=== PATIENT | male | born 2005 | race Caucasian/White ===

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

== ENCOUNTER 2023-08-31 14:34 | Emergency (ER) | payer OTHER, SELFPAY ==
--- NOTE | 2023-08-31 14:47 | ED_ITS ---
Discharge Plan Disposition Patient Disposition: Home, Self-Care Condition: Good Prescriptions Prescriptions: New oseltamivir [Tamiflu] 75 mg capsule 75 mg PO BID Qty: 10 0RF uksvfjivnjmqltl-pqwviljla-UA [Bromfed DM] 2-30-10 mg/5 mL Syrup 5 ml PO Q6H PRN (Reason: Cough) Qty: 240 0RF ondansetron 4 mg Tablet,Disintegrating 4 mg PO Q8H PRN (Reason: Nausea) Qty: 12 0RF Referrals Follow up/Referrals: Provider,Referral, MD [Primary Care Provider] - See instructions Activity Restrictions/Add. Instructions Additional Instructions/Restrictions: Drink plenty of fluids. Take tylenol or ibuprofen for pain or fever. Take the medications as directed. Follow up with your regular doctor. GO TO THE ER FOR ANY WORSENING SYMPTOMS Clinical Impressions Clinical Impression: Influenza B Instructions Patient Instructions: DI for Influenza -- Adult, Influenza, Oseltamivir Discharge ED Provider: Samuel Berry [facility] General Stated complaint: runny nose congestion headache Time Seen by Provider: 08/31/23 14:53 History of Present Illness Provider Complaint: He states that for the past 2 days he has had fever, chills, body aches, malaise, cough, and scratchy throat. Related Data Previous Rx's Medication Instructions Recorded gjqrkedzenrpjet-agtbibjymdjgyht-UL 5 ml PO Q6H PRN Cough #240 mL 08/31/23 2 mg-30 mg-10 mg/5 mL oral syrup (Bromfed DM) ondansetron 4 mg disintegrating 4 mg PO Q8H PRN Nausea #12 tabs 08/31/23 tablet oseltamivir 75 mg capsule (Tamiflu) 75 mg PO BID #10 caps 08/31/23 Allergies Allergy/AdvReac Type Severity Reaction Status Date / Time Penicillins [PENICILLINS] Allergy Unknown Verified 08/31/23 14:59 [facility] Disclaimer: The information contained in this section may have been updated after the patient was seen, as this information can be updated by other users. Medical History (Updated 08/31/23 @ 15:31 by Samuel Berry APRN) No significant past medical history Social History Smoking Status: Unknown if ever smoked alcohol intake: never current occupational status: student Travel in the last 8 weeks: None ROS Obtained: Yes All systems reviewed & no additional complaints except as documented Constitutional Constitutional: Reports chills and Reports fever(s) Eyes Eyes: Denies eye discharge ENT Ears, Nose, Mouth, and Throat: Reports as per HPI Cardiovascular Cardiovascular: Denies chest pain Respiratory Respiratory: Denies chest congestion and Reports cough Gastrointestinal Gastrointestingal: Reports nausea; Denies abdominal pain, constipation, crampin g, diarrhea or vomiting Musculoskeletal Musculoskeletal: Denies arthralgias Integumentary/Breasts Skin/Breast: Denies rash Neurologic Neurologic: Denies paresthesias Physical Exam General General appearance: alert and in no apparent distress Head Head exam: atraumatic, normocephalic and normal inspection Eye Eye exam: Present normal appearance, PERRL and EOMI ENT ENT exam: Present normal exam, normal oropharynx, mucous membranes moist, TM's normal bilaterally and normal external ear exam Neck Neck exam: Present normal inspection, full ROM and trachea midline; Absent meningismus or lymphadenopathy Chest Chest inspection: Present normal inspection and symmetric chest wall rise; Absent tenderness Respiratory Respiratory exam: Present normal lung sounds bilaterally; Absent respiratory distress Cardiovascular Cardiovascular exam: Present regular rate and normal rhythm; Absent JVD Abdominal Exam Abdominal exam: Present soft and normal bowel sounds; Absent distention, tenderness or guarding Extremities Exam Extremities exam: Present normal inspection, full ROM and normal capillary refill; Absent calf tenderness Back Exam Back exam: Present normal inspection; Absent tenderness Neurological Exam Neurological exam: Present alert and oriented X3 Psychiatric Psychiatric exam: Present normal affect and normal mood Skin Skin exam: Present warm, dry, intact and normal color Lymphatic Lymphatic Findings: no adenopathy Medical Decision Making Medical Records Medical records reviewed: No I reviewed the patient's medical records. Chavez Inquiry Pt receiving controlled substance: No Lab Data Lab results reviewed: Yes I reviewed the patient's lab results.
[2023-08-31 14:50] VITALS: BP 120/80; PULSE 77; RESP 18; TEMP 36.6; O2SAT 98; BMI 16.3
[2023-08-31 15:29] LABS: UTC Influenza A Antigen Negative (Negative); UTC Strep Screen (Rapid) Negative (Negative)
[2023-08-31 15:30] LABS: UTC Influenza B Antigen Positive (Negative)
[2023-08-31 15:38] VITALS: BP 120/80; PULSE 77; RESP 18; TEMP 36.6; O2SAT 98
== END 2023-08-31 15:38 | disposition home or self-care (01) ==
PROVIDERS: Emergency Provider Nurse Practitioner Family
DX: J10.1 Influenza due to other identified influenza virus with other respiratory manifestations (principal); R50.9 Fever, unspecified; R05.9 Cough, unspecified; R09.81 Nasal congestion; R07.0 Pain in throat; R11.0 Nausea; R53.81 Other malaise; M79.18 Myalgia, other site
CPT/HCPCS: 87804; 87880; 99212; 99214; G0463

== ENCOUNTER 2023-09-03 16:09 | Outpatient (CLI) | payer OTHER, SELFPAY ==
--- NOTE | 2023-09-03 16:14 | XR_ITS ---
PROCEDURE INFORMATION: Exam: XR Cervical Spine Exam date and time: 09/03/2023 4:33 PM Age: 17 years old Clinical indication: Pain; Cervicalgia; Additional info: Cervicalgia, numbness and tingling TECHNIQUE: Imaging protocol: Radiologic exam of the cervical spine. Views: 2 or 3 views. COMPARISON: MR CERVICAL SPINE WO CON 06/05/2022 8:24 AM FINDINGS: Bones/joints: Normal. No acute fracture. Normal alignment. Soft tissues: Unremarkable. IMPRESSION: No acute findings.
== END 2023-09-03 23:59 ==
LOC: RAD 16:10
PROVIDERS: Visit Provider Nurse Practitioner Family
DX: M54.2 Cervicalgia (principal); R20.0 Anesthesia of skin; R20.2 Paresthesia of skin
CPT/HCPCS: 72040

== ENCOUNTER 2024-02-02 14:17 | Outpatient (CLI) | payer OTHER, SELFPAY ==
[2024-02-02 14:50] VITALS: BP 110/57; PULSE 78; RESP 18; O2SAT 96
[2024-02-02 14:50] LABS: Adenovirus,PCR Not Detected (NotDetected); Bordetella Pertussis Not Detected (NotDetected); Chlamydophila Pneumoniae, PCR Not Detected (NotDetected); Coronavirus 19, PCR Not Detected (NotDetected); Coronavirus 229E Not Detected (NotDetected); Coronavirus NL63 Not Detected (NotDetected); Coronavirus OC43 Not Detected (NotDetected); Coronovirus HKU1,PCR Not Detected (NotDetected); Human Metapneumovirus Not Detected (NotDetected); Influenza A, PCR Not Detected (NotDetected); Influenza AH1, 2009 Not Detected (NotDetected); Influenza AH1, PCR Not Detected (NotDetected); Influenza AH3,PCR Not Detected (NotDetected); Influenza B, PCR Not Detected (NotDetected); Mycoplasma Pneumoniae, PCR Not Detected (NotDetected); Parainfluenza 1, PCR Not Detected (NotDetected); Parainfluenza 2, PCR Not Detected (NotDetected); Parainfluenza 3, PCR Not Detected (NotDetected); Parainfluenza 4, PCR Not Detected (NotDetected); Respiratory Syncytial Virus Not Detected (NotDetected)
[2024-02-02] MEDS: 0.9 % SODIUM CHLORIDE 1000ML 1,000 ML 999 ML IV (14:50)
[2024-02-02 15:00] LABS: Adenovirus F 40/41, stool Not Detected (NotDetected); Astrovirus Not Detected (NotDetected); Campylobacter Not Detected (NotDetected); Clostridium Difficile A/B, PCR Not Detected (NotDetected); Cryptosporidium Not Detected (NotDetected); Cyclospora Cayetanesis Not Detected (NotDetected); Entamoeba histolytica Not Detected (NotDetected); Enteroaggregative E coli Not Detected (NotDetected); Enterotoxigenic E coli Not Detected (NotDetected); Giardia lamblia Not Detected (NotDetected); Plesimonas Shigalloides, PCR Not Detected (NotDetected); Rotavirus A Not Detected (NotDetected); Salmonella, PCR Not Detected (NotDetected); Sapovirus Not Detected (NotDetected); Shiga-like toxin E coli Not Detected (NotDetected); Shigella Enterovasive E coli Not Detected (NotDetected); Vibrio Cholerae Not Detected (NotDetected); Vibrio, PCR Not Detected (NotDetected); Yersinia Entercolitica, PCR Not Detected (NotDetected)
[2024-02-02 16:15] VITALS: BP 108/59; PULSE 75; RESP 18; O2SAT 96
[2024-02-02 16:26] LABS: Rhinovirus/Enterovirus Detected (NotDetected)
[2024-02-02 17:56] LABS: Enteropathogenic E coli Detected (NotDetected); Norovirus Detected (NotDetected)
== END 2024-02-02 16:15 | disposition home or self-care (01) ==
LOC: INF 14:20
PROVIDERS: PCP Nurse Practitioner Family; Visit Provider Nurse Practitioner Family
DX: E86.0 Dehydration (principal); R11.2 Nausea with vomiting, unspecified; R19.7 Diarrhea, unspecified; R50.9 Fever, unspecified; A04.0 Enteropathogenic Escherichia coli infection; A08.19 Acute gastroenteropathy due to other small round viruses; B97.10 Unspecified enterovirus as the cause of diseases classified elsewhere
CPT/HCPCS: 87507; 87581; 87632; 87635; 87798; 96360

== ENCOUNTER 2025-02-03 18:00 | Emergency (ER) | payer OTHER, SELFPAY ==
[2025-02-03] VITALS (8 sets, daily range): BP systolic 119–144; BP diastolic 78–95; PULSE 76–112; RESP 16–20; TEMP 36.7; O2SAT 99–100; BMI 17.2
--- NOTE | 2025-02-03 18:17 | XR_ITS ---
PROCEDURE INFORMATION: Exam: XR Right Hand Exam date and time: 02/03/2025 6:29 PM Age: 19 years old Clinical indication: Injury or trauma; Other: Punched a tree; Other: Pain; Additional info: Punched a tree, tree won TECHNIQUE: Imaging protocol: Radiologic exam of the right hand. Views: 3 or more views. COMPARISON: CR (HAND PA, HAND, HAND PA) 12/07/2018 10:01 AM FINDINGS: Bones/joints: Fourth metacarpal head neck fracture with apex dorsal angulation. Abnormal articulation of the 4th and 5th metacarpal bases may represent subluxation. Moderately comminuted fracture of the hamate. Soft tissues: Moderate soft tissue swelling at the fracture sites. IMPRESSION: 1. Fourth metacarpal head neck fracture with apex dorsal angulation. Abnormal articulation of the 4th and 5th metacarpal bases may represent subluxation. 2. Moderately comminuted fracture of the hamate.
--- NOTE | 2025-02-03 18:17 | XR_ITS ---
PROCEDURE INFORMATION: Exam: XR Right Wrist Exam date and time: 02/03/2025 6:29 PM Age: 19 years old Clinical indication: Injury or trauma; Other: Punched a tree; Other: Pain TECHNIQUE: Imaging protocol: Radiologic exam of the right wrist. Views: 3 or more views. COMPARISON: CR (HAND PA, HAND, HAND PA) 12/07/2018 10:01 AM FINDINGS: Bones/joints: Fourth metacarpal head neck fracture with apex dorsal angulation. Abnormal articulation of the 4th and 5th metacarpal bases may represent subluxation. Soft tissues: Normal. IMPRESSION: 1. Fourth metacarpal head neck fracture with apex dorsal angulation. 2. Abnormal articulation of the 4th and 5th metacarpal bases may represent subluxation.
--- NOTE | 2025-02-03 18:19 | HMH.EDGENADL ---
Discharge Plan Disposition Patient Disposition: Home, Self-Care Prescriptions Prescriptions: New ibuprofen 800 mg tablet 800 mg PO Q8H PRN (Reason: pain) Qty: 12 0RF hydrocodone-acetaminophen 5-300 mg tablet 1 tab PO Q8H PRN (Reason: pain (scale score 7-10)) Qty: 9 0RF Rx Instructions: Only take after ibuprofen 806 150 mg of Tylenol are ineffective for severe pain No Action ondansetron HCl 4 mg tablet 4 mg PO Q8H PRN (Reason: nausea and vomiting) Qty: 30 0RF Referrals Follow up/Referrals: Ana Zuniga APRN [Primary Care Provider, Medical] - See instructions Christian Cavazos DO [Staff Physician, Orthopedics] - See instructions Activity Restrictions/Add. Instructions Additional Instructions/Restrictions: At this time it was felt you are safe to be discharged home. If new or worsening symptoms please do not hesitate to return the emergency department. Please call and schedule appoint with Dr. Cavazos as soon as you are able. Please take your medication as prescribed. Clinical Impressions Clinical Impression: Fracture of metacarpal, Fracture of hamate Print Language Print Language: Bengali Discharge ED Provider: Omar Batres General Adult HPI General Chief complaint: Extremity Injury, Upper Stated complaint: [id number] injury right hand Time Seen by Provider: 02/03/25 18:05 Mode of Arrival: Ambulatory Source of Information: Patient Description of Symptoms (Recalled from ER Triage Doc. by RN): pt presents to the ED after punching a tree with his right hand 30 minutes ago. pt states he got mad and punched a tree. PMS present. History of Present Illness HPI narrative: Patient is a 19-year-old right handed male who presents emergency department for evaluation of punching a tree. He punched it approximately 30 minutes prior to arrival and had immediate pain over his dorsal lateral wrist and MCP joints. No elbow pain no proximal forearm pain no other acute complaints at this time no other trauma. Please note that above description of symptoms, in this electronic medical record under categorization of recalled from ER triage doctor by RN are reflective of an initial nursing assessment, however, is not reflective of my full history and physical exam that was personally taken and clarified. Consequentially, this preceding description of symptoms, which may include the patient's categorized chief complaint in the EMR, do not reflect my personal clinical impression, and the ultimate description of history of present illness and patient stated complaints should be deferred to this section of the note. Unless stated otherwise or congruent with this section of the note, additional signs, symptoms, or incongruence should be interpreted as inaccurate with my clinical impression. Related Data Previous Rx's ?Medication ?Instructions ?Recorded ondansetron HCl 4 mg tablet 4 mg PO Q8H PRN nausea and 02/02/24 vomiting #30 tabs hydrocodone 5 mg-acetaminophen 300 1 tab PO Q8H PRN pain (scale score 02/03/25 mg tablet 7-10) #9 tabs ibuprofen 800 mg tablet 800 mg PO Q8H PRN pain #12 tabs 02/03/25 Allergies Allergy/AdvReac Type Severity Reaction Status Date / Time Penicillins (PENICILLINS) Allergy Unknown Verified 02/02/24 13:06 [facility] Disclaimer: The information contained in this section may have been updated after the patient was seen, as this information can be updated by other users. Medical History No significant past medical history Social History Smoking Status: Current every day smoker tobacco type: cigarettes years smoked: 2 alcohol intake: never substance use type: denies use current occupational status: unemployed Travel in the last 8 weeks?: None Have you lived/traveled outside US in past 30 days?: No Contact w/someone who lives/traveled outside US past 30 days?: No Exposure to someone with infectious disease in past 14 days?: No Do you have a fever (greater than 100.4 F or 38 C)?: No Have you tested positive for COVID-19?: No Exposed to someone with COVID-19 in past 14 days?: No Do you have a sore throat?: No Do you have a cough?: No Do you have any weakness?: No Do you have any diarrhea?: No Are you experiencing any unusual bleeding?: No Do you have any muscle aches/pain?: No Do you have any abdominal pain?: No Are you experiencing loss of taste or smell?: No ROS Obtained: Yes Systems reviewed as appropriate & no additional complaints except as documented Physical Exam General General appearance: alert Comment: Appearing uncomfortable in bed Head Head exam: atraumatic and normocephalic Eye Eye exam: Present PERRL and EOMI ENT ENT exam: Present mucous membranes moist Neck Neck exam: Present normal inspection Chest Chest inspection: Present normal inspection and symmetric chest wall rise Respiratory Respiratory exam: Absent respiratory distress Cardiovascular Cardiovascular exam: Present regular rate and normal rhythm Extremities Exam Extremities exam: Present other (Bumpy deformity over the ulnar aspect of the metacarpals, distally neurovascularly intact all digits of the right hand. No tenderness over the digits of the right hand or distal forearm on the right. Palpable radial pulse on the right.) Neurological Exam Neurological exam: Present alert Psychiatric Psychiatric exam: Present normal affect Skin Skin exam: Present warm and dry Medical Decision Making Medical Records Screening: Per USPSTF and CDC recommendations, given the prevalence of disease in our region, it is our hospital?s policy to screen for HIV and viral Hepatitis for all patients aged 18 and over and those with ongoing risk factors. Chavez Inquiry Pt receiving controlled substance: No Vital Signs: 02/03/25 18:07 02/03/25 18:10 02/03/25 18:13 Temperature 98.1 F 98.1 F Temperature Source Oral Oral Pulse Rate 90 88 Pulse Rate [Right] 88 Respiratory Rate 16 16 Blood Pressure 144/95 H 144/95 H Blood Pressure [Right Arm] 144/95 H Blood Pressure Mean [Right Arm] 111 Blood Pressure Source Automatic Cuff Blood Pressure Source [Right Arm] Automatic Cuff Blood Pressure Position Supine Blood Pressure Position [Right Arm] Supine 02 Sat by Pulse Oximetry 99 100 100 Oxygen Delivery Method Room Air Room Air Room Air 02/03/25 18:30 Temperature Temperature Source Pulse Rate 93 H Pulse Rate [Right] Respiratory Rate Blood Pressure 120/78 Blood Pressure [Right Arm] Blood Pressure Mean [Right Arm] Blood Pressure Source Blood Pressure Source [Right Arm] Blood Pressure Position Blood Pressure Position [Right Arm] 02 Sat by Pulse Oximetry 99 Oxygen Delivery Method Room Air Orders (Tests/Meds): ED MEDICATIONS Discontinued Medications Generic Name Dose Route Start Last Admin Trade Name Freq PRN Reason Stop Dose Admin Acetaminophen 650 mg 02/03/25 18:17 02/03/25 18:25 Acetaminophen 325mg Tab PO 02/03/25 18:18 650 mg ONCE ONE Administration Ibuprofen 600 mg 02/03/25 18:17 02/03/25 18:24 Ibuprofen 600 Mg Tablet PO 02/03/25 18:18 600 mg ONCE ONE Administration Oxycodone HCl 5 mg 02/03/25 18:53 02/03/25 18:58 Oxycodone 5mg Immediate Release Tablet PO 02/03/25 18:54 5 mg ONCE ONE Administration ORDERS Category Date Time Status Hand XR right minimum 3 views [XR hand RT min 3V] Stat Exams 02/03/25 18:17 Completed Hand XR right minimum 3 views [XR hand RT min 3V] Stat Exams 02/03/25 19:45 Ordered Wrist XR right minimum 3 views [XR wrist RT min 3V] Exams 02/03/25 18:17 Completed Stat HIV Combo Stat Lab 02/03/25 18:13 Ordered Hepatitis C Ab Qual. W/ RFX Stat Lab 02/03/25 18:13 Ordered Medical Decision Narrative: In summary patient is 19-year-old male past medical history Casey above presents emergency department for evaluation of trauma punching a tree. Patient is hemodynamically stable upon arrival has a bumpy deformity of his right hand which I suspect he has a metacarpal fracture. Differential diagnosis also includes metacarpal dislocation musculoskeletal swelling, among others. Workup we conducted with plain from the right hand and wrist. Initial inventions include Tylenol and ibuprofen. Initial x-ray informally visualized by me, acute fourth metacarpal fracture. Formal read abnormal articulation of the base of the 4th and 5th metatarsals may represent subluxation there is also a hamate fracture. I discussed the case with Dr. Cavazos regarding management on the lateral there is not appear to be subluxation of the base of the 4th and 5th metacarpals and the force is likely transmitted through the hamate. Given this patient was reduced after digital block. Informal visualization of the lateral x-ray shows improved angulation. Given this patient was placed in a ulnar gutter splint and will follow-up with Dr. Cavazos on an outpatient basis and was given return precautions. Procedure: Procedure performed was fracture duction. Procedure facilitated by metacarpal block conducted with lidocaine without epinephrine approximately 7 cc was infected into the intercarpal metacarpal space between the 3rd and 4th and 4th and 5th digits. Partial anesthesia achieved. Dorsal force was applied to the distal fracture fragment and was placed in an ulnar gutter splint. Patient tolerated the procedure well. Distally neurovascular intact postreduction. There were no immediate complications. Cotton Roll Packer disclaimer Much of this encounter note is an electronic critical care physician assistant spoken language to printed text. Electronic critical care physician assistant of the spoken language may permit errors. Although I have reviewed the note, some errors may still exist. Critical Care Critical Care Time Critical Care Time: No
[2025-02-03] MEDS: IBUPROFEN 600 MG TABLET PO (18:24)
[2025-02-03] MEDS: ACETAMINOPHEN 325MG TAB 650 MG PO (18:25)
[2025-02-03] MEDS: OXYCODONE 5MG IMMEDIATE RELEASE TABLET 5 MG PO (18:58)
--- NOTE | 2025-02-03 19:45 | XR_ITS ---
PROCEDURE INFORMATION: Exam: XR Right Hand Exam date and time: 02/03/2025 7:51 PM Age: 19 years old Clinical indication: Injury or trauma; Other: Punched a tree; Other: Pain; Additional info: Repeat reduct TECHNIQUE: Imaging protocol: Radiologic exam of the right hand. Views: 1 or 2 views. COMPARISON: CR XR HAND RT MIN 3V 02/03/2025 6:29 PM FINDINGS: Tubes, catheters and devices: Posterior splint immobilization of previously described 4th metacarpal and hamate fractures. Bones/joints: See above. Soft tissues: Moderate soft tissue swelling at the fracture sites. IMPRESSION: Posterior splint immobilization of previously described 4th metacarpal and hamate fractures.
--- NOTE | 2025-02-03 19:50 | PC.NURSE ---
ED provider at the bedside for digital block and reduction
== END 2025-02-03 20:03 | disposition home or self-care (01) ==
PROVIDERS: Emergency Provider Emergency Medicine; PCP Nurse Practitioner Family
DX: S62.334A Displaced fracture of neck of fourth metacarpal bone, right hand, initial encounter for closed fracture (principal); S62.141A Displaced fracture of body of hamate [unciform] bone, right wrist, initial encounter for closed fracture; W22.8XXA Striking against or struck by other objects, initial encounter
CPT/HCPCS: 29125; 73110; 73120; 73130; 99284

== ENCOUNTER 2025-02-10 14:32 | Outpatient (CLI) | payer OTHER, SELFPAY ==
--- OUTSIDE RECORDS SUMMARY | 2025-02-10 14:41 | XMS_ITS | Encounter Summary ---
Author Organization [address] [employer] Address [address] [place] [id number] Care Team Providers Care Supervisor In Charge Name Role Phone Unavailable Primary Care Provider Unavailabl e Encounter Details Date Type Department Care Team (Late st Contact Info) Description 01/17/2021 Transcribed Document [facility] [place] Family Medicine [address] [place] [address] ProviderZackery MD [address] [place] [address] Social History Tobacco Use Types Packs/Day Years Used Date Smoking Tobacco: Never Assessed Sex and Gender Information Value Date Recorded Sex Assigned at Male 02/12/2022 8:52 PM CDT Legal Sex Male 8:52 PM CDT Gender Identity Male 02/12/2022 8:52 PM CDT Sexual Orientation Not on file documented as of this encounter Miscellaneous Notes * Cerner Conversion Note - Zackery ProviderMD - 01/17/2021 8:43 PM CDT ED Assessment Entered On: 01/17/2021 21:33 EDT Performed On: 01/17/2021 21:33 EDT by CARROLL HENAO Rn ED Quick Look Assessment Level of Consciousness : Alert, Awake Affect/Behavior : Appropriate, Calm, Cooperative Orientation : Oriented x 4 Skin Temperature : Warm Skin Description : Dry CARROLL HENAO Rn - 01/17/2021 21:33 EDT ED General-Functional Assess Communication Barrier : None Primary Language : Montserratian Any Spiritual/Cultural Needs or Requests : No Currently in Unsafe Situation : No CARROLL HENAO Rn - 01/17/2021 21:33 EDT Social Habits Smoking Status : 5-9 cigarettes (between 1/4 to 1/2 pack)/day in last 30 days Smokeless Tobacco Status : Never Desires Tobacco Cessation Medication : No Reason for No Tobacco Cessation Medication : ED/procedural patient only Desires Tobacco Cessation Calc : 1 CARROLL HENAO, Rn - 01/17/2021 21:33 EDT Social History (As Of: 01/17/2021 21:33:50 EDT) Tobacco: 5-9 cigarettes (between 1/4 to 1/2 pack)/day in last 30 days Smoking Status. (Last Updated: 01/17/2021 20:49:47 EDT by CARROLL HENAO, Rn) Alcohol: Alcohol Use History No. (Last Updated: 01/17/2021 20:49:47 EDT by CARROLL HENAO, Rn) Substance Abuse: Drug Use Hx: No. Use in Last 12 Months: No. (Last Updated: 01/17/2021 20:49:47 EDT by CARROLL HENAO, Rn) documented in this encounter Plan of Treatment Not on file documented as of this encounter Visit Diagnoses Not on filedocumented in this encounter
--- OUTSIDE RECORDS SUMMARY | 2025-02-10 14:41 | XMS_ITS | Referral Summary ---
Author Organization [employer] Address [address] [place] [id number] Care Team Providers Care Ostrich Farmer Name Role Phone Unavailable Primary Care Provider Unavailabl e Social History Tobacco Use Types Packs/Day Years Used Date Smoking Tobacco: Never Assessed Sex and Gender Information Value Date Recorded Sex Assigned at Male 02/12/2022 8:52 PM CDT Legal Sex Male 8:52 PM CDT Gender Identity Male 02/12/2022 8:52 PM CDT Sexual Orientation Not on file Plan of Treatment Not on file
--- OUTSIDE RECORDS SUMMARY | 2025-02-10 14:41 | XMS_ITS | Encounter Summary ---
Author Organization [employer] Address [address] [place] [address] Care Team Providers Care Correction Officer Reformatory Name Role Phone Unavailable Primary Care Provider Unavailabl e Encounter Details Date Type Department Care Team (Late st Contact Info) Description 01/17/2021 Transcribed Document [facility] [place] Family Medicine [address] [place] [address] ProviderZackery MD [address] [place], [place] [id number] Social History Tobacco Use Types Packs/Day Years Used Date Smoking Tobacco: Never Assessed Sex and Gender Information Value Date Recorded Sex Assigned at Male 02/12/2022 8:52 PM CDT Legal Sex Male 8:52 PM CDT Gender Identity Male 02/12/2022 8:52 PM CDT Sexual Orientation Not on file documented as of this encounter Miscellaneous Notes * Cerner Conversion Note - Historical ProviderMD - 01/17/2021 8:43 PM CDT Broset Violence Assessment Entered On: 01/17/2021 21:33 EDT Performed On: 01/17/2021 21:33 EDT by CARROLL HENAO Rn Broset Violence Assessment Broset Violence Checklist of Symptoms : None Broset Violence Symptoms Subtotal : 0 Broset Violence Symptoms Indicator : Low risk (0) CARROLL HENAO Rn - 01/17/2021 21:33 EDT documented in this encounter Plan of Treatment Not on file documented as of this encounter Visit Diagnoses Not on filedocumented in this encounter
--- OUTSIDE RECORDS SUMMARY | 2025-02-10 14:41 | XMS_ITS | Clinical Summary ---
Author Organization Healthcare Address [address] [id number] Care Team Providers Care Salvationist Name Role Phone Good Romo MD Primary Care Provider [phone] Allergies Active Allergy Reactions Criticality Noted Date Comments Penicillins Unknown - Patient st ates they do not know rxn details Low 01/25/2021 Medications ibuprofen 800 MG tablet Take 800 mg by mouth every 6 (six) hours if needed for mild pain. Active sulfamethoxazole -trimethoprim (Bactrim DS) 800-160 MG tablet Take 1 tablet by mouth 2 (two) times a day. Active Active Problems Problem Noted Date Diagnosed Date Postoperative scar 02/27/2021 Median nerve laceration, right, subsequent encou nter 02/07/2021 Assessment & Plan (02/07/2021 2:51 PM EDT): Relevant Hx: s/p primary repair of median nerve and palmar cutaneous branch 01/26/21 Course: Decreased two-point discrimination in median nerve distribution as expected. Today's Plan: Discussed with patient this will continue to evolve over time and we will continue to follow. Flexor tendon laceration of right wrist with ope n wound 02/07/2021 Assessment & Plan (02/07/2021 2:53 PM EDT): Relevant Hx: Laceration of FCR, FDS to middle, ring, and small fingers 01/26/21 Course: Began modified granados protocol, no evidence of repaired tendon rupture. Today's Plan: Continue PT/OT (patient with appointment today), Continue splint (patient will need new splint made at Hand therapy appointment today), Follow-up with Dr. Clemencia Doyle 1 month S/P tendon repair 02/05/2021 Pain in wrist, right 02/01/2021 Stiffness of right wrist joint 01/30/2021 Finger joint stiff, right 01/30/2021 Edema of hand 01/30/2021 Weakness of right hand 01/30/2021 Pain in finger of right hand 01/17/2021 Family History Medical History Relation Name Comments Cancer Paternal Grandmother Relation Name Status Comments Paternal Grandmother Social History Tobacco Use Types Packs/Day Years Used Date Smoking Tobacco: Every Day Cigarettes 0.3 1 Smokeless Tobacco: Never Alcohol Use Standard Drinks/Week Comments Never 0 (1 standard drink = 0.6 oz pur e alcohol) Sex and Gender Information Value Date Recorded Sex Assigned at Not on file Legal Sex Male 3:56 PM EDT Gender Identity Not on file Sexual Orientation Not on file Last Filed Vital Signs Vital Sign Reading Time Taken Comments Blood Pressure 112/71 04/18/2021 12:51 PM EDT Pulse 75 04/18/2021 12:51 PM EDT Temperature 36.9 C (98.4 F) 04/18/2021 12:51 PM EDT Respiratory Rate 12 01/26/2021 7:15 PM EDT Oxygen Saturation 100% 04/18/2021 12:51 PM EDT Inhaled Oxygen Concentration - - Weight 51.7 kg (114 lb) 04/18/2021 12:51 PM EDT Height 177.8 cm (5' 10 ) 04/18/2021 12:51 PM EDT Body Mass Index 16.36 04/18/2021 12:51 PM EDT Plan of Treatment Health Maintenance Due Date Last Done Comments [facility]-Depression Screening 2003 [facility]-/Child/Adol SDOH Screenings 2003 [facility]-Varicella Vaccines (1 of 2 - 13+ 2-dose series) 12/23/2016 HPV Vaccines (1 - Male 3-dos e series) 12/23/2018 [facility]- SDOH Screenings 12/23/2021 [facility]-Adult SDOH Screenings 12/23/2021 [facility]-DTaP,Tdap,and Td Vaccine s (1 - Tdap) 12/23/2022 [facility]-Hepatitis B Vaccines (1 of 3 - 19+ 3-dose series) 12/23/2022 [facility]-MLNZF-30 Vaccine (1 - 20 24-25 season) 2024 [facility]-Influenza Vaccine (Seas[place] n Ended) 2025 [facility]-Zoster Vaccines (1 of 2) 12/23/2053 [facility]-HIB Vaccines Aged Out No longer e ligible based on patient's age to complete this topic [facility]-Hepatitis A Vaccines Aged Out No longer eligible based on patient's age to complete this topic [facility]-IPV Vaccines Aged Out No longer e ligible based on patient's age to complete this topic [facility]-Pneumococcal Vaccine: Pediatrics (0 to 5 Years) and At-Risk Patients (6 to 49 Years) Aged Out No long er eligible based on patient's age to complete this topic [facility]-Rotavirus Vaccines Aged Out No lo nger eligible based on patient's age to complete this topic Goals Goal Patient Goal Type Associated Problems Recent Progress Patient-Stated? Author OT Goal move my hand the way I did Occupational Therapy On track(2020 2:35 PM EDT) Yes Ana Lilia Patel OT Goal - reduce edema in R wrist by 1 cm by 03/26/21 Occupational Therapy Improving( 1:46 PM EDT) No Ana Lilia Patel Note: Continue with goal Decreased edema by 0.6 cm on 02/27/21 LTG OT Impaired Function: Patient will decrease QUICK DASH score to < 15% Occupational Therapy Improving( 10:58 AM EDT) No Ana Lilia Patel Pt will regain buzzle buffer strength of affected hand to within normal range for sex and age in order to return to activity at prior level of function Occupational Therapy Improving( 10:58 AM EDT) No Ana Lilia Patel STG 4: Pt will increase wrist AROM in extension, radial and ulnar deviation to 60, 20 and 25 respectively by 03/26/21 Occupational Therapy Improving( 10:58 AM EDT) No Ana Lilia Patel STG OT ROM: Patient will demonstrate ability to passively extend IP to neutral without resistance of scar Occupational Therapy Improving( 10:58 AM EDT) No Ana Lilia Patel STG OT: Patient will demonstrate 10 lbs increase in right hand buzzle buffer strength. Occupational Therapy No Ana Lilia Patel Insurance [employer] MEDICAID [employer] Care Teams Salvationist Relationship Specialty Start Date End Date Good Romo MD [address] [place] [address] #1 [address]1 [place] [id number] PCP - General 01/26/21
--- OUTSIDE RECORDS SUMMARY | 2025-02-10 14:41 | XMS_ITS | Encounter Summary ---
Author Organization [employer] Address [address] [place] [address] Care Team Providers Care Plumber Supervisor Name Role Phone Unavailable Primary Care Provider Unavailabl e Encounter Details Date Type Department Care Team (Late st Contact Info) Description 01/17/2021 Transcribed Document [facility] [place] [address] [place] [address] ProviderZackery MD [address] [place] [address] Social History Tobacco Use Types Packs/Day Years Used Date Smoking Tobacco: Never Assessed Sex and Gender Information Value Date Recorded Sex Assigned at Male 02/12/2022 8:52 PM CDT Legal Sex Male 8:52 PM CDT Gender Identity Male 02/12/2022 8:52 PM CDT Sexual Orientation Not on file documented as of this encounter Miscellaneous Notes * Cerner Conversion Note - Zackery López MD - 01/17/2021 10:58 PM CDT [facility] [place], [place] [id number] VLADIMIR WALL :2005 Visit Time:01/17/2021 Your Visit Summary Your Care Team Primary Provider: NIDA BOLTON PA-C Secondary Provider: Your Diagnosis Arm laceration Laceration of wrist, right, complicated Medical Information You may obtain a copy of your Emergency Department visit from Medical Records by calling the hospital phone number listed above and asking to be directed to the Medical Records Department. If you had special tests, such as EKG???s or X-rays, the interpretation of your tests given to you by the Emergency Department Physician is a preliminary report. Some fractures and illnesses fail to show up on preliminary tests. These will be reviewed again and we will call you if there are any new suggestions. If your symptoms continue notify your physician. After you leave, you should follow the instructions provided. What to do next Follow-Up Appointments Follow Up with HANNAH MATHEW When Within 2 to 3 days Comments Orthopedics Call tomorrow morning for appointment for tomorrow or frederick Keep wound clean and dry Return to ER with any redness swelling or other complications Motrin and Tylenol Where: [address] [address]- Business (1) Follow Up with SUE [facility] When Within 2 to 3 days Where: [address] [place] [id number] Business (1) Allergies penicillin Immunizations This Visit No Immunizations Found Medications What How Much When Instructions Next Dose ibuprofen (ibuprofen 800 mg oral tablet) 1 Tablet(s) Oral Every 8 Hours Duration: 10 Day(s) Pickup at [facility] sulfamethoxazole-trimethoprim (Bactrim DS 800 mg-160 mg oral tablet) 1 Tablet(s) Oral Two Times A Day Duration: 10 Day(s) Pickup at [facility] Pharmacy Information [facility]: [address] [place] [address] [address] [place], [place] [phone] The home medications listed are only as accurate as the information you provided. Please continue taking all of your medications prescribed by your Primary Care Provider unless specifically told to change or discontinue the medication. Please direct any questions regarding your home medications to your Primary Care Provider. Take your medications faithfully. Do NOT skip medication. Do NOT stop taking medications without the direction of a physician. Carry a list of your medications with you at all times, and take this medication list with you to your first follow up visit. Report any side effects. Avoid herbal remedies unless discussed with your physician. As part of your treatment plan, your physician may have prescribed a limited course of a controlled substance. This medication may be given to help people with moderate or severe pain or for other medical conditions, but there are risks involved with treatment. Common side effects may include nausea, constipation, drowsiness, sweating, itching, dry mouth, and rash. More serious side effects may include cognitive and motor impairment, like problems with thinking, concentrating, alertness, and movement (e.g. slowed reflexes), and driving and operating heavy machinery can be dangerous. It is important for you to talk to your physician if you have these side effects or questions. These controlled substances can produce physical dependence and be habit-forming if taken for an extended period of time, which means that the body has gotten used to them and may experience withdrawal symptoms if they are abruptly stopped. Withdrawal symptoms can include runny nose, sweating, goose bumps, diarrhea, abdominal cramping, rapid heartbeat, difficulty sleeping, and nervousness. Please dispose of unused and medications per pharmacy guidance. Test Results Laboratory or Other Results This Visit (last charted value for your 01/17/2021 visit) No Laboratory or Other Results This Visit Education Materials Wound Care, Adult Taking care of your wound properly can help to prevent pain, infection, and scarring. It can also help your wound to heal more quickly. How to care for your wound Wound care ??? Follow instructions from your health care provider about how to take care of your wound. Make sure you: ? Wash your hands with soap and water before you change the bandage (dressing). If soap and water are not available, use hand fork repairer. ? Change your dressing as told by your health care provider. ? Leave stitches (sutures), skin glue, or adhesive strips in place. These skin closures may need to stay in place for 2 weeks or longer. If adhesive strip edges start to loosen and curl up, you may trim the loose edges. Do not remove adhesive strips completely unless your health care provider tells you to do that. ??? Check your wound area every day for signs of infection. Check for: ? Redness, swelling, or pain. ? Fluid or blood. ? Warmth. ? Pus or a bad smell. ??? Ask your health care provider if you should clean the wound with mild soap and water. Doing this may include: ? Using a clean towel to pat the wound dry after cleaning it. Do not rub or scrub the wound. ? Applying a cream or ointment. Do this only as told by your health care provider. ? Covering the incision with a clean dressing. ??? Ask your health care provider when you can leave the wound uncovered. ??? Keep the dressing dry until your health care provider says it can be removed. Do not take baths, swim, use a hot tub, or do anything that would put the wound underwater until your health care provider approves. Ask your health care provider if you can take showers. You may only be allowed to take sponge baths. Medicines ??? If you were prescribed an antibiotic medicine, cream, or ointment, take or use the antibiotic as told by your health care provider. Do not stop taking or using the antibiotic even if your condition improves. ??? Take cdry-yuz-qwboqlo and prescription medicines only as told by your health care provider. If you were prescribed pain medicine, take it 30 or more minutes before you do any wound care or as told by your health care provider. General instructions ??? Return to your normal activities as told by your health care provider. Ask your health care provider what activities are safe. ??? Do not scratch or pick at the wound. ??? Do not use any products that contain nicotine or tobacco, such as cigarettes and e-cigarettes. These may delay wound healing. If you need help quitting, ask your health care provider. ??? Keep all follow-up visits as told by your health care provider. This is important. ??? Eat a diet that includes protein, vitamin A, vitamin C, and other nutrient-rich foods to help the wound heal. ? Foods rich in protein include meat, dairy, beans, nuts, and other sources. ? Foods rich in vitamin A include carrots and dark green, leafy vegetables. ? Foods rich in vitamin C include citrus, tomatoes, and other fruits and vegetables. ? Nutrient-rich foods have protein, carbohydrates, fat, vitamins, or minerals. Eat a variety of healthy foods including vegetables, fruits, and whole grains. Contact a health care provider if: ??? You received a tetanus shot and you have swelling, severe pain, redness, or bleeding at the injection site. ??? Your pain is not controlled with medicine. ??? You have redness, swelling, or pain around the wound. ??? You have fluid or blood coming from the wound. ??? Your wound feels warm to the touch. ??? You have pus or a bad smell coming from the wound. ??? You have a fever or chills. ??? You are nauseous or you vomit. ??? You are dizzy. Get help right away if: ??? You have a red streak going away from your wound. ??? The edges of the wound open up and separate. ??? Your wound is bleeding, and the bleeding does not stop with gentle pressure. ??? You have a rash. ??? You faint. ??? You have trouble breathing. Summary ??? Always wash your hands with soap and water before changing your bandage (dressing). ??? To help with healing, eat foods that are rich in protein, vitamin A, vitamin C, and other nutrients. ??? Check your wound every day for signs of infection. Contact your health care provider if you suspect that your wound is infected. This information is not intended to replace advice given to you by your health care provider. Make sure you discuss any questions you have with your health care provider. Document Revised: 11/22/2019 Document Reviewed: 02/18/2017 [employer] Patient Education ?? 2020 [employer] Laceration Care, Adult A laceration is a cut that may go through all layers of the skin and into the tissue that is right under the skin. Some lacerations heal on their own. Others need to be closed with stitches (sutures), luis, skin adhesive strips, or skin glue. Proper care of a laceration reduces the risk for infection, helps the laceration heal better, and may prevent scarring. How to care for your laceration Wash your hands with soap and water before touching your wound or changing your bandage (dressing). If soap and water are not available, use hand fork repairer. Keep the wound clean and dry. If you were given a dressing, you should change it at least once a day, or as told by your health care provider. You should also change it if it becomes wet or dirty. If sutures or luis were used: ??? Keep the wound completely dry for the first 24 hours, or as told by your health care provider. After that time, you may shower or bathe. However, make sure that the wound is not soaked in water until after the sutures or luis have been removed. ??? Clean the wound once each day, or as told by your health care provider: ? Wash the wound with soap and water. ? Rinse the wound with water to remove all soap. ? Pat the wound dry with a clean towel. Do not rub the wound. ??? After cleaning the wound, apply a thin layer of antibiotic ointment as told by your health care provider. This will help prevent infection and keep the dressing from sticking to the wound. ??? Have the sutures or luis removed as told by your health care provider. If skin adhesive strips were used: ??? Do not get the skin adhesive strips wet. You may shower or bathe, but be careful to keep the wound dry. ??? If the wound gets wet, pat it dry with a clean towel. Do not rub the wound. ??? Skin adhesive strips fall off on their own. You may trim the strips as the wound heals. Do not remove skin adhesive strips that are still stuck to the wound. They will fall off in time. If skin glue was used: ??? Try to keep the wound dry, but you may briefly wet it in the shower or bath. Do not soak the wound in water, such as by swimming. ??? After you have showered or bathed, gently pat the wound dry with a clean towel. Do not rub the wound. ??? Do not do any activities that will make you sweat heavily until the skin glue has fallen off on its own. ??? Do not apply liquid, cream, or ointment medicine to the wound while the skin glue is in place. Using those may loosen the film before the wound has healed. ??? If a dressing is placed over the wound, be careful not to apply tape directly over the skin glue. Doing that may cause the glue to be pulled off before the wound has healed. ??? Do not pick at the glue. Skin glue usually remains in place for 5???10 days and then falls off the skin. General instructions ??? Take wbnq-ply-mfhuckz and prescription medicines only as told by your health care provider. ??? If you were prescribed an antibiotic medicine or ointment, take or apply it as told by your health care provider. Do not stop using it even if your condition improves. ??? Do not scratch or pick at the wound. ??? Check your wound every day for signs of infection. Watch for: ? Redness, swelling, or pain. ? Fluid, blood, or pus. ??? Raise (elevate) the injured area above the level of your heart while you are sitting or lying down for the first 24???48 hours after the laceration is repaired. ??? If directed, put ice on the affected area: ? Put ice in a plastic bag. ? Place a towel between your skin and the bag. ? Leave the ice on for 20 minutes, 2???3 times a day. ??? Keep all follow-up visits as told by your health care provider. This is important. Contact a health care provider if: ??? You received a tetanus shot and you have swelling, severe pain, redness, or bleeding at the injection site. ??? You have a fever. ??? A wound that was closed breaks open. ??? You notice a bad smell coming from your wound or your dressing. ??? You notice something coming out of the wound, such as wood or glass. ??? Your pain is not controlled with medicine. ??? You have increased redness, swelling, or pain at the site of your wound. ??? You have fluid, blood, or pus coming from your wound. ??? You need to change the dressing often due to fluid, blood, or pus that is draining from the wound. ??? You develop a new rash. ??? You develop numbness around the wound. Get help right away if: ??? You develop severe swelling around the wound. ??? Your pain suddenly increases and is severe. ??? You develop painful lumps near the wound or on skin anywhere else on your body. ??? You have a red streak going away from your wound. ??? The wound is on your hand or foot and you cannot properly move a finger or toe. ??? The wound is on your hand or foot, and you notice that your fingers or toes look pale or bluish. Summary ??? A laceration is a cut that may go through all layers of the skin and into the tissue that is right under the skin. ??? Some lacerations heal on their own. Others need to be closed with stitches (sutures), luis, skin adhesive strips, or skin glue. ??? Proper care of a laceration reduces the risk of infection, helps the laceration heal better, and prevents scarring. This information is not intended to replace advice given to you by your health care provider. Make sure you discuss any questions you have with your health care provider. Document Revised: 10/02/2018 Document Reviewed: 08/24/2018 [employer] Patient Education ?? 2020 [employer] Emergency Awareness and Preventative Care STROKE is an EMERGENCY Every Minute Counts Act FAST and Check for these signs: FACE Does the face look uneven? ARM Does one arm drift down? SPEECH Does their speech sound strange? TIME Call at any sign of stroke Stroke Risk Factors Atrial Fibrillation (irregular heartbeat) Diabetes Family history of stroke Heart Disease Heavy alcohol use High Blood Pressure High Cholesterol Physical inactivity and obesity Smoking Cigarette Smoking The facts are clear, cigarette smoking will shorten your life. Smoking can cause many illnesses along the way. As a healthcare provider, we recommend that you stop smoking. Assistance with quitting is available by contacting 8-500-OTEY-NOW. This is a free resource providing counseling, support, and referral. Or you may contact your personal physician. National Suicide Prevention Lifeline: The National Suicide Prevention Lifeline is a national network of local crisis centers that provides free and confidential emotional support to people in suicidal crisis or emotional distress 24 hours a day, 7 days a week. Don't Wait! Stop a Heart Attack Before it Starts What is a heart attack? A heart attack is damage or to a part of the heart from severely decreased or lack of blood flow to the heart. Over time, arteries can become narrow from the buildup of fat and cholesterol, which is called plaque. The plaque can rupture causing a blood clot to form. When the blood clot forms, the artery can become severely narrowed or completely blocked, causing a heart attack. Heart attack is the leading cause of in the [place]. 85% of muscle damage occurs within the first 2 hours. Delay in the recognition of heart attack symptoms increases the chances of . Know the early symptoms of a heart attack: Nausea Feeling of fullness in chest Jaw Pain Pain that travels down one or both arms Fatigue/being tired Anxiety Back Pain Chest pressure, squeezing, or discomfort Shortness of breath Sweating, or a cold sweat Feeling of impending doom There are unusual signs of a heart attack, too! Women, the elderly, and diabetics may present with atypical symptoms: Fainting/dizziness Weakness Confusion Risk Factors for a Heart Attack Some heart disease risk factors, such as age and family history, cannot be changed. Others, like smoking and lack of exercise, can be changed. Smoking High Cholesterol High Blood Pressure Family History Obesity Age Gender (Males are at higher risk) Lack of Exercise Diabetes Diet Stress Excessive Alcohol Intake If you or someone you know is experiencing the signs and symptoms of a heart attack, DON???T DELAY. Call immediately and seek help. If someone collapses, perform CPR! Do not attempt to drive if you are having symptoms of heart attack. Hands-Only CPR Why Hands-Only CPR? Hands-Only CPR has been shown to be as effective as conventional CPR for cardiac arrests that occur outside of a hospital. Survival depends on immediately receiving CPR from someone nearby. How do you perform Hands-Only CPR? There are two easy steps: Call if you see a teen or adult collapse Push hard and fast in the center of the chest at a beat of 100 beats per minute. Save a life! 4 WAYS TO GET AHEAD OF SEPSIS SEPSIS is a MEDICAL EMERGENCY. Time matters! Infections put you and your family at risk for a life-threatening condition called sepsis. Sepsis is the body's extreme response to an infection. It is life-threatening, and without timely treatment, sepsis can rapidly lead to tissue damage, organ failure, and . Sepsis happens when an infection you already have-in your skin, lungs, urinary tract or somewhere else-triggers a chain reaction throughout your body. 1 PREVENT INFECTIONS Take good care of chronic conditions. Talk to your doctor about getting the recommended vaccines. 2 PRACTICE GOOD HYGIENE Wash your hands frequently. Keep cuts or open sores clean and covered until they are healed. 3 KNOW THE SYMPTOMS Confusion or disorientation Shortness of breath High heart rate Fever, shivering, or feeling very cold Extreme pain or discomfort Clammy or sweaty skin 4 ACT FAST Get medical care IMMEDIATELY if you suspect sepsis or if you have an infection that is not getting better or is getting worse. To learn more about sepsis and how to prevent infections, visit www.cdc.gov/sepsis. The examination and treatment you have received in the Emergency Department has been done to provide an appropriate evaluation and stabilizing treatment on an emergency basis only. Given the limited resources, it is not meant to be a substitute for complete medical care. The follow-up doctor you named will receive a copy of your records and all test reports. IT IS IMPORTANT THAT YOU SCHEDULE A FOLLOW-UP APPOINTMENT AND ARE RE-EVALUATED. You should report any new complaints, symptoms, or remaining problems at that time. IT IS IMPOSSIBLE FOR THE EMERGENCY DEPARTMENT TO RECOGNIZE AND TREAT ALL ELEMENTS OF INJURY OR ILLNESS IN A SINGLE VISIT. If you have been referred to a specialist physician, it means that we believe you may have a condition that requires the expertise of a specialist. These physicians work in partnership with the hospital and have agreed to see referred patients in their office for further evaluation. KEEP IN MIND THAT THE SPECIALIST HAS HIS/HER OWN OFFICE POLICIES WHICH MAY REQUIRE PROPER INSURANCE OR PAYMENT UP FRONT BEFORE THE SPECIALIST WILL SEE YOU. It is your responsibility to call the specialist physician to make an appointment. We do not have the ability to refer patients to specialists/physicians that work with specific insurance companies. Please be advised that all financial charges or billing practices are determined by that practice, not the hospital. If your insurance company requires that you see a specialist from their approved list, it is your responsibility to contact your insurance company to make those arrangements. It is also your responsibility to follow any other requirements of your insurance company necessary to obtain coverage for claims submitted. We will bill your insurance; however, you are responsible today for any co-pay amounts. You will receive a separate bill for any services you may have received including: emergency, radiology, or pathology physicians. Patient Name:VLADIMIR WALL I have received this information and was given the opportunity to ask questions. Patient/Trip Motor Operator Name: Patient/Trip Motor Operator Signature: Relationship to Patient: Clinician/Hospital Trip Motor Operator Signature: Please Provide a Telephone Number Where You Can Be Reached: Is it Permissible To Leave a Message? Date: documented in this encounter Plan of Treatment Not on file documented as of this encounter Visit Diagnoses Not on filedocumented in this encounter
--- OUTSIDE RECORDS SUMMARY | 2025-02-10 14:41 | XMS_ITS | Clinical Summary ---
Author Organization [employer] Address [address] [place] [id number] Care Team Providers Care Survey Research Center Director Name Role Phone Unavailable Primary Care Provider [...]
--- OUTSIDE RECORDS SUMMARY | 2025-02-10 14:41 | XMS_ITS | Encounter Summary ---
Author Organization [employer] Address [address] [place] [address] Care Team Providers Care Protein Scientist Name Role Phone Unavailable Primary Care Provider Unavailabl e Encounter Details Date Type Department Care Team (Late st Contact Info) Description 01/17/2021 Transcribed Document [facility] [place] [address] [place] [address] ProviderZackery MD [address] [place] [address] Social History Tobacco Use Types [...] Conversion Note - Historical ProviderMD - 01/17/2021 10:54 PM CDT Electronically signed by Jam[facility] Conversion Coater [employer] Paper Cerner at 12/02/2022 2:09 PM CDT documented in this encounter Plan of Treatment Not on file documented as of this encounter Visit Diagnoses Not on filedocumented in this encounter
--- OUTSIDE RECORDS SUMMARY | 2025-02-10 14:41 | XMS_ITS | Encounter Summary ---
Author Organization [employer] Address [address] [place] [address] Care Team Providers Care Retort Condenser Attendant Name Role Phone Unavailable Primary Care Provider Unavailabl e Encounter Details Date Type Department Care Team (Late st Contact Info) Description 01/17/2021 Transcribed Document [facility] [place] [address] [place] [address] ProviderZackery MD [address] [place] [address] Social History Tobacco Use Types [...] Conversion Note - Historical ProviderMD - 01/17/2021 10:52 PM CDT Patient: VLADIMIR CR Age: 15 years Sex: Male : 2005 Associated Diagnoses: Laceration of wrist, right, complicated Author: NIDA BOLTON PA-C Basic Information Additional information: Chief Complaint from Nursing Triage Note : Chief Complaint 01/17/2021 20:44 EDT Chief Complaint Pt c/o laceration to right wrist after punching through a window. Pt states he is unable to feel his right hand (Modified) . History of Present Illness The patient presents with wrist laceration(s), Patient is a 15-year-old male with no significant past medical history he presents to the emergency department with a laceration to his right forearm on the volar surface. Patient punched through a window just prior to arrival. He reports some decrease sensation in his hand but has full range of motion bleeding controlled. Patient up-to-date on Tdap. Review of Systems Additional review of systems information: All other systems reviewed and otherwise negative. Health Status Allergies: Allergic Reactions (Selected) Severity Not Documented Penicillin- No reactions were documented.. Medications: (Selected) Inpatient Medications Ordered Bactrim DS: 1 Tab, Oral, 1-Time Keflex: 500 mg, Oral, 1-Time. Immunizations: Per nurse's notes. Past Medical/ Family/ Social History Medical history Reviewed as documented in chart. Surgical history: None ([id number])., Reviewed as documented in chart. Family history: No family history items have been selected or recorded., Reviewed as documented in chart. Social history: Social & Psychosocial Habits Alcohol 01/17/2021 Alcohol Use History, Social Habits No Substance Abuse 01/17/2021 Recreational Drug Use History No Recreational Drug Use Last 12 Months No Tobacco 01/17/2021 Smoking Status 5-9 cigarettes (between 1 . Problem list: Active Problems (1) No Chronic Problems , per nurse's notes. Physical Examination Vital Signs Vital Signs/Vital Measures 01/17/2021 20:44 EDT Systolic Blood Pressure 143 mmHg HI Diastolic Blood Pressure 73 mmHg Temperature Source Temporal artery scanning Temperature Mode Fahrenheit Temperature, Fahrenheit 98 Deg F Clinical Temperature, C 36.7 Deg C Peripheral Pulse Rate 97 bpm HI Respiratory Rate 18 Breaths/Min Oxygen Saturation 98 % Oxygen Therapy Mode Room air . Measurements 01/17/2021 20:44 EDT Height Source Stated Height Entry Format [place] Height/Length, KINYARWANDA (ft) 5 ft Height/Length KINYARWANDA 8 Inch CLINICALHEIGHT 172.72 cm Type of Weight Measurement. [place] Weight, est lb 150 lb Estimated Clinical Dosing Weight 68.18 kg [place] Body Weight 67 kg Weight Source Estimated . Oxygen Saturation 01/17/2021 20:44 EDT Oxygen Saturation 98 % . General: Alert, no acute distress. Skin: Warm, dry, Patient is approximately 8 centimeter horizontal laceration with 1 to 2 mm gaping wound. Bleeding controlled. Evaluated by ED attending as well. Head: Normocephalic, atraumatic. Neck: Supple, trachea midline. Eye: Normal conjunctiva. Ears, nose, mouth and throat: Oral mucosa moist. Cardiovascular: Regular rate and rhythm, Normal peripheral perfusion. Respiratory: Respirations are non-labored. Musculoskeletal: Normal ROM, normal strength, Distal upper extremity: Right, anterior, wrist, laceration (8 cm, linear, subcutaneous, see procedure note description). Neurological: Alert and oriented to person, place, time, and situation, No focal neurological deficit observed, normal motor observed, normal speech observed, normal coordination observed, Patient reports diminished sensation in distal digits 1 through 4 on right hand. Lymphatics: No lymphadenopathy. Psychiatric: Cooperative, appropriate mood & affect. Medical Decision Making Differential Diagnosis:: Forearm laceration, wrist laceration. Documents reviewed: Emergency department nurses' notes. Orders Include Previous Orders (Selected) Inpatient Orders Ordered Discharge: Immobilizer Brace Splint Upper Extremity: Ordered (Exam Completed) CR Wrist Min 3 Vws RT: Completed Bactrim DS: 1 Tab, Oral, 1-Time [place] Violence Assessment: ED Adult Fall Risk Assessment: ED C-SSRS: ED Clinical Reconciliation: ED PEDS Triage: ED assistant operations manager: Keflex: 500 mg, Oral, 1-Time Prescriptions Prescribed Bactrim DS 800 mg-160 mg oral tablet: 1 Tab, Oral, BID, for 10 Day(s), 20 Tab, 0 Refill(s) ibuprofen 800 mg oral tablet: 1 Tab, Oral, Q8H, for 10 Day(s), 30 Tab, 0 Refill(s). Radiology results: No acute fracture reviewed by EDMD. Procedure Laceration repair Time: 01/17/2021 23:21:00 . Confirmed: Patient, procedure, side, and site correct. Consent: Parent, Patient, Has given verbal consent. Description/ repair Laceration 8 cm in length.Upper extremity: right, anterior, wrist. Shape: linear, complex. Depth: subcutaneous. Details: clean. Neurovascular/ tendon exam: no circulation deficit, no motor deficit, sensory deficit. Anesthesia: 15 ml, 1% lidocaine, with epinephrine, injected locally. Preparation: sterile field established, skin prepped with chlorhexidine. Irrigation: copious, with sterile water. Skin closure: # 10 sutures, with 4 -0 Nylon, simple technique, interrupted technique, 5 mattress sutures placed as well with 4-0 Ethilon. Complexity: single layer. Post procedure exam: Circulation, motor, sensory examination intact, Bleeding controlled. Patient tolerated: Well. Performed by: Self. Total time: 60 minutes. Notes: Discussed with Dr Feliz that tendon was visible and that there may have been a very minor tracy in the tendon patient had full range of motion, he reports I will see the patient in the office tomorrow or Friday, Laceration was evaluated by ED attending, Dr. Paul advised mattress sutures to help close the wound given its width. Impression and Plan Diagnosis Laceration of wrist, right, complicated - Discharge, Medical Calls-Consults - Spoke with Dr Kendall ignacio senior data integration developer advised pt call ortho office tomrorow morning for followup tomorrow or friday. Plan Condition: Improved, Stable. Disposition: Discharged Admit/Transfer/Discharge: Discharge (Order): Start: 01/17/2021 22:56 EDT, Discharge to: Home. Prescriptions: Prescription [facility]: Bactrim DS 800 mg-160 mg oral tablet (Prescribe): 1 Tab, Oral, BID, for 10 Day(s), 20 Tab, 0 Refill(s), Prescription [facility]: ibuprofen 800 mg oral tablet (Prescribe): 1 Tab, Oral, Q8H, for 10 Day(s), 30 Tab, 0 Refill(s). Patient was given the following educational materials: Laceration Care, Adult, Wound Care, Adult. Follow up with: [facility] Within 2 to 3 days; HANNAH FELIZ Within 2 to 3 days Orthopedics Call tomorrow morning for appointment for tomorrow or friday Keep wound clean and dry Return to ER with any redness swelling or other complications Motrin and Tylenol. Counseled: Patient, Family, Regarding diagnosis, Regarding diagnostic results, Regarding treatment plan, Regarding prescription, Patient indicated understanding of instructions. Electronically signed by Franko Kauffman Conversion Chemical Engineering Technologist Cerner at 12/02/2022 2:06 PM CDT documented in this encounter Plan of Treatment Not on file documented as of this encounter Visit Diagnoses Not on filedocumented in this encounter
--- OUTSIDE RECORDS SUMMARY | 2025-02-10 14:41 | XMS_ITS | Encounter Summary ---
Author Organization [employer] Address [address] [place] [address] Care Team Providers Care Slaughterer Religious Ritual Name Role Phone Unavailable Primary Care Provider Unavailabl e Encounter Details Date Type Department Care Team (Late st Contact Info) Description 01/18/2021 Transcribed Document [facility] [place] Family Medicine [address] [place] [address] ProviderZackery MD [address] [place] [address] Social History Tobacco Use [...] Cerner Conversion Note - Historical ProviderMD - 01/18/2021 8:50 PM CDT CR Wrist Min 3 Vws RT Ordered: 01/17/2021 Auth (Verified) Reason for Exam: trauma 01/18/2021 01:02 01/18/2021 20:50 (KVNG GALLEGOS, LISA) Reviewed by Provider, No further action required X1 - no acute 01/18/2021 10:33 (ANA ORTIZ) Provider Review Required documented in this encounter Plan of Treatment Not on file documented as of this encounter Visit Diagnoses Not on filedocumented in this encounter
--- OUTSIDE RECORDS SUMMARY | 2025-02-10 14:41 | XMS_ITS | Encounter Summary ---
Author Organization [employer] Address [address] [place] [address] Care Team Providers Care Bilingual Operator Name Role Phone Unavailable Primary Care Provider Unavailabl e Encounter Details Date Type Department Care Team (Late st Contact Info) Description 01/17/2021 Transcribed Document [facility] [place] Family Medicine [address] [place] [address] ProviderZackery MD [address] [place], [place] [address] Social History Tobacco Use Types Packs/Day Years [...] Historical ProviderMD - 01/17/2021 8:43 PM CDT [place] Suicide Severity Rating Scale (C-SSRS) Entered On: 01/17/2021 21:34 EDT Performed On: 01/17/2021 21:33 EDT by CARROLL HENAO Rn [place] Suicide Severity Rating Scale (C-SSRS) CSSRS Past Month Wish to be : No CSSRS Past Month Suicidal Thoughts : No CSSRS Lifetime Suicide Behavior : No Suicide Severity Rating Score : 0 Suicide Severity Rating : No Additional Care Required at this time CARROLL HENAO Rn - 01/17/2021 21:33 EDT documented in this encounter Plan of Treatment Not on file documented as of this encounter Visit Diagnoses Not on filedocumented in this encounter
--- OUTSIDE RECORDS SUMMARY | 2025-02-10 14:41 | XMS_ITS | Encounter Summary ---
Author Organization [employer] Address [address] [place] [address] Care Team Providers Care Sewer Hand Name Role Phone Unavailable Primary Care Provider Unavailabl e Encounter Details Date Type Department Care Team (Late st Contact Info) Description 01/17/2021 Transcribed Document [facility] Family Medicine [address] [place] [address] ProviderZackery MD [address] [place] [address] Social History Tobacco Use Types [...] Conversion Note - Zackery ProviderMD - 01/17/2021 11:04 PM CDT ED Discharge Entered On: 01/17/2021 23:04 EDT Performed On: 01/17/2021 23:04 EDT by CARROLL HENAO Rn Discharge Process Patient Disposition : Discharge Personal Belongings With Patient : Yes Patient Education Completed : Yes Teaching Evaluation : Verbalizes understanding Link to Valuables and Belongings form : No IV Discontinued : Not applicable Nursing Documentation Completed : Yes CARROLL HENAO Rn - 01/17/2021 23:04 EDT ED Discharge Discharge To : Home with ambulatory/outpatient follow-up Name of Receiving Facility/Provider : PCP Mode Of Departure : Ambulatory Accompanied By : Unaccompanied Discharge Instructions Reviewed With, Opportunity For Questions Given : Patient Prescriptions Given to Patient : Electronically sent Number of Prescriptions Given : 2 Medications Given to Patient : No CARROLL HENAO Rn - 01/17/2021 23:04 EDT documented in this encounter Plan of Treatment Not on file documented as of this encounter Visit Diagnoses Not on filedocumented in this encounter
--- OUTSIDE RECORDS SUMMARY | 2025-02-10 14:41 | XMS_ITS | Encounter Summary ---
Author Organization [employer] Address [address] [place] [address] Care Team Providers Care Service Observer Chief Name Role Phone Unavailable Primary Care Provider Unavailabl e Encounter Details Date Type Department Care Team (Late st Contact Info) Description 01/17/2021 Transcribed Document [facility] [place] Family Medicine [address] [place] [address] ProviderZackery MD [address] [place] [address] Social History Tobacco Use Types [...] Zackery ProviderMD - 01/17/2021 8:43 PM CDT PED ED Triage Entered On: 01/17/2021 20:46 EDT Performed On: 01/17/2021 20:44 EDT by CARROLL HENAO Rn PED ED Triage ED Vital Signs : Document Chief Complaint : Pt c/o laceration to right wrist after punching through a window. Pt states he is unable to feel his right hand CARROLL HENAO Rn - 01/17/2021 20:47 EDT Triage Date/Time : 01/17/2021 20:44 EDT CARROLL HENAO Rn - 01/17/2021 20:44 EDT DCP GENERIC CODE Tracking Group : [facility] ED Tracking Acuity : 4 - Non - Urgent CARROLL HENAO Rn - 01/17/2021 20:44 EDT Mode of Arrival : Ambulatory Transported to ED by : Private vehicle To Room Via : Ambulate Accompanied By : Unaccompanied Height & Weight : Document ED Allergies : Document ED Infection Control : No ED Reason for Visit : Document Immunizations Reviewed : Up to date CARROLL HENAO Rn - 01/17/2021 20:44 EDT Infectious Disease History Has the patient ever been tested for COVID-19? : Yes, Patient stated results Negative Date of COVID-19 test known? : No Does patient have symptoms of COVID-19? : No COVID19 Screening : No Experiencing Infectious Disease Symptoms : No symptoms Physical contact outside [place] in the last 30 days : No Infectious Disease History : None Tuberculosis Symptoms : None CARROLL HENAO Rn - 01/17/2021 20:44 EDT Vital Signs ED Temperature Source : Temporal artery scanning Temperature Mode : Fahrenheit Temperature, Fahrenheit : 98 Deg F ED Pain : Yes Clinical Temperature, C : 36.7 Deg C Oxygen Therapy Mode : Room air Peripheral Pulse Rate : 97 bpm (HI) Respiratory Rate : 18 Breaths/Min Systolic Blood Pressure : 143 mmHg (HI) Diastolic Blood Pressure : 73 mmHg Oxygen Saturation : 98 % CARROLL HENAO Rn - 01/17/2021 20:47 EDT Height and Weight, Clinical Dosing Height Source : Stated Height Entry Format : [place] Height, Feet : 5 ft(Converted to: 152 cm, 60 Inch) Height, Inches : 8 Inch(Converted to: 0 ft 8 Inch, 20.32 cm) Clinical Height : 172.72 cm Weight Source : Estimated [place] Body Weight : 67 kg CARROLL HENAO Rn - 01/17/2021 20:44 EDT Estimated Weight Type of Weight Measurement Est : [place] Weight, est lb : 150 lb(Converted to: 68 kg) Estimated Clinical Dosing Weight : 68.18 kg CARROLL HENAO Rn - 01/17/2021 20:44 EDT Diagnosis Control ED (As Of: 01/17/2021 20:46:58 EDT) Problems(Active) No Chronic Problems (Cerner :NKP ) Name of Problem: No Chronic Problems ; Recorder: CARROLL HENAO Rn; Code: NKP ; Last Updated: 01/17/2021 20:46 EDT ; Life Cycle Date: 01/17/2021 ; Life Cycle Status: Active ; Vocabulary: M[place] Diagnoses(Active) Arm laceration Date: 01/17/2021 ; Diagnosis Type: Reason For Visit ; Confirmation: Complaint of ; Clinical Dx: Arm laceration ; Classification: Medical ; Clinical Service: Emergency medicine ; Code: PNED ; Probability: 0 ; Diagnosis Code: [id number] Allergy (As Of: 01/17/2021 20:46:58 EDT) Allergies (Active) penicillin Estimated Onset Date: Unspecified ; Created By: CARROLL HENAO Rn; Reaction Status: Active ; Category: Drug ; Substance: penicillin ; Type: Allergy ; Updated By: CARROLL HENAO Rn; Reviewed Date: 01/17/2021 20:45 EDT Pain Assessment Pain Assessment : Initial assessment Pain Scale Used : 0-10 Scale CARROLL HENAO Rn - 01/17/2021 20:47 EDT Pain Scale Intensity : 8 CARROLL HENAO Rn - 01/17/2021 20:47 EDT Image 4 - Images currently included in the form version of this document have not been included in the text rendition version of the form. documented in this encounter Plan of Treatment Not on file documented as of this encounter Visit Diagnoses Not on filedocumented in this encounter
--- NOTE | 2025-02-10 14:42 | XR_ITS ---
FINAL REPORT CLINICAL HISTORY: fracture from punching a tree two weeks ago (4th metacarpal and hamate) COMPARISON: 02/03/2025 FINDINGS: Three views of the right hand show a comminuted fracture of the 4th metacarpal neck with angulation and anterior displacement which are stable. The reported hamate fracture is present but not well-visualized. There is dorsal subluxation or dislocation of the 5th CMC joint which appears unchanged. No new acute bony abnormality identified. The joint spaces otherwise appear normal. IMPRESSION: Stable 4th metacarpal and hamate fractures with subluxation/dislocation of the 5th CMC joint. Reviewed, Interpreted and Dictated by Keven Kent MD Transcribed by Alis Harrell Authenticated and [facility]
== END 2025-02-10 23:59 | disposition home or self-care (01) ==
LOC: RAD 14:38
PROVIDERS: Visit Provider Physician Assistant
DX: S62.304A Unspecified fracture of fourth metacarpal bone, right hand, initial encounter for closed fracture (principal); S62.141A Displaced fracture of body of hamate [unciform] bone, right wrist, initial encounter for closed fracture; S63.054A Dislocation of other carpometacarpal joint of right hand, initial encounter; S63.051A Subluxation of other carpometacarpal joint of right hand, initial encounter
CPT/HCPCS: 73130

== ENCOUNTER 2025-02-21 10:35 | Outpatient (CLI) | payer OTHER, SELFPAY ==
--- NOTE | 2025-02-21 10:15 | CT_ITS ---
FINAL REPORT TECHNIQUE: Thin section axial images were obtained of the right hand. Coronal and sagittal images were obtained and reviewed. This study was performed with techniques to keep radiation doses as low as reasonably achievable, (ALARA). Individualized dose reduction techniques using automated exposure control or adjustment of mA and/or kV according to the patient's size were employed. CLINICAL HISTORY: evaluation for proper and urgent treatment distal fourth metacarpal and displaced hamate fracture sustained on 02/03/2025 when he punched a tree COMPARISON: None FINDINGS: There is a comminuted mildly impacted fracture of the distal 4th metacarpal. There is volar angulation of the distal fracture fragment measuring approximately 90 degrees. Subtle fracture is noted involving the hamate. There is a small linear fragment along the medial aspect of the proximal 4th metacarpal. Minimal impaction of the 5th carpometacarpal joint is seen on sagittal images 19-21. IMPRESSION: Fractures of the hamate and distal 4th metacarpal. Fragment along the medial aspect of the 4th metacarpal. Reviewed, Interpreted and Dictated by Bentley Terry MD Transcribed by Alis Harrell Authenticated and [facility]
--- OUTSIDE RECORDS SUMMARY | 2025-02-21 10:53 | XMS_ITS | Encounter Summary ---
Author Organization [employer] ([place], [place], [place], [place]) Address [address] [place] [address] Care Team Providers Care Harness Puller Name Role Phone Unavailable Primary Care Provider Unavailabl e Encounter Details Date Type Department Care Team (Late st Contact Info) Description 01/17/2021 Transcribed Document [facility] [place] [address] [place] [address] ProviderZackery MD [address] [place], [place] [address] Social History Tobacco Use Types Packs/Day Years [...] Historical ProviderMD - 01/17/2021 8:43 PM CDT [place] Suicide Severity Rating Scale (C-SSRS) Entered On: 01/17/2021 21:34 EDT Performed On: 01/17/2021 21:33 EDT by CARROLL HENAO Rn [place] Suicide Severity Rating Scale (C-SSRS) CSSRS Past Month Wish to be : No CSSRS Past Month Suicidal Thoughts : No CSSRS Lifetime Suicide Behavior : No Suicide Severity Rating Score : 0 Suicide Severity Rating : No Additional Care Required at this time CARROLL HENAO Rn - 01/17/2021 21:33 EDT Electronically signed by Franko Kauffman Conversion Strategic Debriefing Specialist Cerner at 12/02/2022 2:06 PM CDT documented in this encounter Plan of Treatment Not on file documented as of this encounter Visit Diagnoses Not on filedocumented in this encounter
--- OUTSIDE RECORDS SUMMARY | 2025-02-21 10:53 | XMS_ITS | Encounter Summary ---
Author Organization [employer] ([place], [place], [place], [place]) Address [address] [place] [address] Care Team Providers Care Snack Bar Cashier Name Role Phone Unavailable Primary Care Provider Unavailabl e Encounter Details Date Type Department Care Team (Late st Contact Info) Description 01/17/2021 Transcribed Document [facility] [place] Family Medicine [address] [place] [address] ProviderZackery MD [address] [place] [address] Social History Tobacco Use Types [...] Historical ProviderMD - 01/17/2021 8:43 PM CDT ED [...] Communication Barrier : None Primary Language : Romanian Any Spiritual/Cultural Needs or Requests : No [...]
--- OUTSIDE RECORDS SUMMARY | 2025-02-21 10:53 | XMS_ITS | Encounter Summary ---
Author Organization [employer] ([place], [place], [place], [place]) Address [address] [place] [address] Care Team Providers Care Mixing Machine Tender Name Role Phone Unavailable Primary Care Provider Unavailabl e Encounter Details Date Type Department Care Team (Late st Contact Info) Description 01/17/2021 Transcribed Document [facility] [place] Family Medicine [address] [place] [address] ProviderZackery MD [address] [place], [place] [id number] Social History Tobacco Use Types Packs/Day Years [...]
--- OUTSIDE RECORDS SUMMARY | 2025-02-21 10:53 | XMS_ITS | Encounter Summary ---
Author Organization [employer] ([place], [place], [place], [place]) Address [address] [place] [address] Care Team Providers Care Locksmith Apprentice Name Role Phone Unavailable Primary Care Provider Unavailabl e Encounter Details Date Type Department Care Team (Late st Contact Info) Description 01/17/2021 Transcribed Document [facility] [place] [address] [place] [address] ProviderZackery MD [address] [place] [address] Social History Tobacco Use Types [...] Conversion Note - Zackery ProviderMD - 01/17/2021 10:58 PM CDT [facility] [place] [address] VLADIMIR WALL :2005 Visit Time:01/17/2021 Your Visit [...] other complications Motrin and Tylenol Where: [address] [address] Business (1) Follow Up with [facility] When Within 2 to 3 days Where: [address] [place] [address] [facility] (1) Allergies penicillin Immunizations This Visit No Immunizations Found Medications What How Much When Instructions Next Dose ibuprofen (ibuprofen 800 mg oral tablet) 1 Tablet(s) Oral Every 8 Hours Duration: 10 Day(s) Pickup at [facility] sulfamethoxazole-trimethoprim (Bactrim DS 800 mg-160 mg oral tablet) 1 Tablet(s) Oral Two Times A Day Duration: 10 Day(s) Pickup at [facility] Pharmacy Information [facility]: [facility] [address] [address] [facility] [address] [place], [place] [id number] [phone] The home medications listed are only as [...] and water are not available, use hand injection mold tooling technician. ? Change your dressing as told by [...] even if your condition improves. ??? Take mayz-irv-[id number] and prescription medicines only as told by [...] provider. Document Revised: 11/22/2019 Document Reviewed: 02/18/2017 [employer] Patient Education ?? 2020 [employer]. Laceration Care, Adult A laceration is a [...] and water are not available, use hand injection mold tooling technician. Keep the wound clean and dry. If [...] off the skin. General instructions ??? Take vmsy-hrl-uiiaijb and prescription medicines only as told by [...] provider. Document Revised: 10/02/2018 Document Reviewed: 08/24/2018 [employer] Patient Education ?? 2020 [employer]. Emergency Awareness and Preventative Care STROKE is [...] Assistance with quitting is available by contacting 5-018-HUDS-NOW. This is a free resource providing counseling, [...] was given the opportunity to ask questions. Patient/Screen Tender Helper Name: Patient/Screen Tender Helper Signature: Relationship to Patient: Clinician/Hospital Screen Tender Helper Signature: Please Provide a Telephone Number Where You Can Be Reached: Is it Permissible To Leave a Message? Date: documented in this encounter Plan of Treatment Not on file documented as of this encounter Visit Diagnoses Not on filedocumented in this encounter
--- OUTSIDE RECORDS SUMMARY | 2025-02-21 10:53 | XMS_ITS | Encounter Summary ---
Author Organization [employer] ([place], [place], [place], [place]) Address [address] [place] [address] Care Team Providers Care Performing Arts Road Manager Name Role Phone Unavailable Primary Care Provider Unavailabl e Encounter Details Date Type Department Care Team (Late st Contact Info) Description 01/18/2021 Transcribed Document [facility] [place] [address] [place] [address] ProviderZackery MD [address] [place] [address] Social History Tobacco Use Types [...] trauma 01/18/2021 01:02 01/18/2021 20:50 ([facility], [place]) Reviewed by Provider, No further action required X1 - no acute 01/18/2021 10:33 (ANA ORTIZ) Provider Review Required documented in this encounter Plan of Treatment Not on file documented as of this encounter Visit Diagnoses Not on filedocumented in this encounter
--- OUTSIDE RECORDS SUMMARY | 2025-02-21 10:53 | XMS_ITS | Encounter Summary ---
Author Organization [employer] ([place], [place], [place], [place]) Address [address] [place] [address] Care Team Providers Care Spa Therapist Name Role Phone Unavailable Primary Care Provider Unavailabl e Encounter Details Date Type Department Care Team (Late st Contact Info) Description 01/17/2021 Transcribed Document [facility] [place] Family Medicine [address] [place] [address] ProviderZackery MD [address] [place] [address] Social History Tobacco Use Types [...] Historical ProviderMD - 01/17/2021 8:43 PM CDT PED [...] EDT DCP GENERIC CODE Tracking Group : [facility] ED Tracking Acuity : 4 - Non [...] Source : Stated Height Entry Format : Watson Height, Feet : 5 ft(Converted to: 152 cm, 60 Inch) Height, Inches : 8 Inch(Converted to: 0 ft 8 Inch, 20.32 cm) Clinical Height : 172.72 cm Weight Source : Estimated [place] Body Weight : 67 kg CARROLL HENAO Rn - 01/17/2021 20:44 EDT Estimated Weight Type of Weight Measurement Est : Watson Weight, est lb : 150 lb(Converted to: [...] ; Life Cycle Status: Active ; Vocabulary: Salazar Diagnoses(Active) Arm laceration Date: 01/17/2021 ; Diagnosis Type: Reason For Visit ; Confirmation: Complaint of ; Clinical Dx: Arm laceration ; Classification: Medical ; Clinical Service: Emergency medicine ; Code: PNED ; Probability: 0 ; Diagnosis Code: [id number] Allergy (As Of: 01/17/2021 20:46:58 EDT) Allergies [...] the text rendition version of the form. Electronically signed by Franko Kauffman Conversion Wildlife Forensic Geneticist Cerner at 12/02/2022 2:24 PM CDT documented in this encounter Plan of Treatment Not on file documented as of this encounter Visit Diagnoses Not on filedocumented in this encounter
--- OUTSIDE RECORDS SUMMARY | 2025-02-21 10:53 | XMS_ITS | Clinical Summary ---
Author Organization [employer] ([place], [place], [place], [place]) Address [address] [place] [address] Care Team Providers Care Hydro Mechanic Name Role Phone Unavailable Primary Care Provider [...]
--- OUTSIDE RECORDS SUMMARY | 2025-02-21 10:53 | XMS_ITS | Encounter Summary ---
Author Organization [employer] ([place], [place], [place], [place]) Address [address] [place] [address] Care Team Providers Care Oncology Radiation Physician Name Role Phone Unavailable Primary Care Provider Unavailabl e Encounter Details Date Type Department Care Team (Late st Contact Info) Description 01/17/2021 Transcribed Document [facility] [place] Family Medicine [address] [place] [address] ProviderZackery MD [address] [place] [address] Social History Tobacco Use Types [...]
--- OUTSIDE RECORDS SUMMARY | 2025-02-21 10:53 | XMS_ITS | Encounter Summary ---
Author Organization [employer] ([place], [place], [place], [place]) Address [address] [place] [address] Care Team Providers Care Administration Specialist Name Role Phone Unavailable Primary Care Provider Unavailabl e Encounter Details Date Type Department Care Team (Late st Contact Info) Description 01/17/2021 Transcribed Document [facility] [place] Family Medicine [address] [place] [address] ProviderZackery MD [address] [place] [address] Social History Tobacco Use Types [...] as documented in chart. Surgical history: None ([id number])., Reviewed as documented in chart. Family history: [...] EDT Height Source Stated Height Entry Format Cuming Height/Length, CZECH (ft) 5 ft Height/Length CZECH 8 Inch CLINICALHEIGHT 172.72 cm Type of Weight Measurement. Cuming Weight, est lb 150 lb Estimated Clinical Dosing Weight 68.18 kg [place] Body Weight 67 kg Weight Source Estimated [...] ED Clinical Reconciliation: ED PEDS Triage: ED launching pad mechanic: Keflex: 500 mg, Oral, 1-Time Prescriptions Prescribed [...] Calls-Consults - Spoke with Dr Kendall ignacio flight controls engineer advised pt call ortho office tomrorow morning for followup tomorrow or friday. Plan Condition: Improved, Stable. Disposition: Discharged Admit/Transfer/Discharge: Discharge (Order): Start: 01/17/2021 22:56 EDT, Discharge to: Home. Prescriptions: Prescription [facility]: Bactrim DS 800 mg-160 mg oral tablet (Prescribe): 1 Tab, Oral, BID, for 10 Day(s), 20 Tab, 0 Refill(s), Prescription [facility]: ibuprofen 800 mg oral tablet (Prescribe): [...] Regarding prescription, Patient indicated understanding of instructions. documented in this encounter Plan of Treatment Not on file documented as of this encounter Visit Diagnoses Not on filedocumented in this encounter
--- OUTSIDE RECORDS SUMMARY | 2025-02-21 10:53 | XMS_ITS | Encounter Summary ---
Author Organization [employer] ([place], [place], [place], [place]) Address [address] [place] [address] Care Team Providers Care Charge Nurse Name Role Phone Unavailable Primary Care Provider Unavailabl e Encounter Details Date Type Department Care Team (Late st Contact Info) Description 01/17/2021 Transcribed Document [facility] [place] Family Medicine [address] [place] [address] ProviderZackery MD [address] [place] [address] Social History Tobacco Use Types [...] PM CDT Electronically signed by Jamari [facility] Conversion Mba Intern Cerner at 12/02/2022 2:09 PM CDT documented in this encounter Plan of Treatment Not on file documented as of this encounter Visit Diagnoses Not on filedocumented in this encounter
--- OUTSIDE RECORDS SUMMARY | 2025-02-21 10:53 | XMS_ITS | Referral Summary ---
Author Organization [employer] ([place], [place], [place], [place]) Address [address] [place] [address] Care Team Providers Care Hand Engraver Name Role Phone Unavailable Primary Care Provider [...]
== END 2025-02-21 23:59 | disposition home or self-care (01) ==
LOC: RAD 10:36
PROVIDERS: PCP Nurse Practitioner Family; Visit Provider Physician Assistant
DX: S62.394A Other fracture of fourth metacarpal bone, right hand, initial encounter for closed fracture (principal); S62.141A Displaced fracture of body of hamate [unciform] bone, right wrist, initial encounter for closed fracture
CPT/HCPCS: 73200

== ENCOUNTER 2025-03-01 12:16 | Outpatient (CLI) | payer OTHER, SELFPAY ==
--- OUTSIDE RECORDS SUMMARY | 2025-03-01 12:20 | XMS_ITS | Clinical Summary ---
Author Organization [employer] ([place], [place], [place], [place]) Address [address] [place] [address] Care Team Providers Care Galley Hand Name Role Phone Unavailable Primary Care [...]
--- OUTSIDE RECORDS SUMMARY | 2025-03-01 12:20 | XMS_ITS | Encounter Summary ---
Author Organization [employer] ([place], [place], [place], [place]) Address [address] [place] [address] Care Team Providers Care Furniture Decals Inspector Name Role Phone Unavailable Primary Care Provider Unavailabl e Encounter Details Date Type Department Care Team (Late st Contact Info) Description 01/17/2021 Transcribed Document [facility] [place] [address] [place] [address] ProviderZackery MD [address] [place], [place] [address] Social History Tobacco Use Types Packs/Day Years [...] Historical ProviderMD - 01/17/2021 8:43 PM CDT [place] Suicide Severity Rating Scale (C-SSRS) Entered On: 01/17/2021 21:34 EDT Performed On: 01/17/2021 21:33 EDT by CARROLL HENAO Rn [place] Suicide Severity Rating Scale (C-SSRS) CSSRS Past [...]
--- OUTSIDE RECORDS SUMMARY | 2025-03-01 12:20 | XMS_ITS | Encounter Summary ---
Author Organization [employer] ([place], [place], [place], [place]) Address [address] [place] [address] Care Team Providers Care Environmental Protection Officer Name Role Phone Unavailable Primary Care Provider Unavailabl e Encounter Details Date Type Department Care Team (Late st Contact Info) Description 01/17/[address] [facility] [place] Family Medicine [address] [place] [address] ProviderZackery MD [address] [place] [address] Social History Tobacco Use Types [...] 10:54 PM CDT Electronically signed by Jamari [facility] Conversion Warehouse Receiving Clerk Cerner at 12/02/2022 2:09 PM CDT documented in this encounter Plan of Treatment Not on file documented as of this encounter Visit Diagnoses Not on filedocumented in this encounter
--- OUTSIDE RECORDS SUMMARY | 2025-03-01 12:20 | XMS_ITS | Encounter Summary ---
Author Organization [employer] ([place], [place], [place], [place]) Address [address] [place] [address] Care Team Providers Care Trade Mark Examiner Name Role Phone Unavailable Primary Care Provider Unavailabl e Encounter Details Date Type Department Care Team (Late st Contact Info) Description 01/17/2021 Transcribed Document [facility] [place] Family Medicine [address] [place] [address] ProviderZackery MD [address] [place] [address] Social History Tobacco Use Types [...] EDT DCP GENERIC CODE Tracking Group : [facility] ED Tracking Acuity : 4 - [...] Source : Stated Height Entry Format : [place] Height, Feet : 5 ft(Converted to: 152 cm, 60 Inch) Height, Inches : 8 Inch(Converted to: 0 ft 8 Inch, 20.32 cm) Clinical Height : 172.72 cm Weight Source : Estimated [place] Body Weight : 67 kg CARROLL HENAO Rn - 01/17/2021 20:44 EDT Estimated Weight Type of Weight Measurement Est : [place] Weight, est lb : 150 lb(Converted to: [...] PNED ; Probability: 0 ; Diagnosis Code: [id number] Allergy (As Of: 01/17/2021 20:46:58 EDT) Allergies [...]
--- OUTSIDE RECORDS SUMMARY | 2025-03-01 12:20 | XMS_ITS | Encounter Summary ---
Author Organization [employer] ([place], [place], [place], [place]) Address [address] [place] [address] Care Team Providers Care Big Data Platform Architect Name Role Phone Unavailable Primary Care Provider Unavailabl e Encounter Details Date Type Department Care Team (Late st Contact Info) Description 01/17/2021 Transcribed Document [facility] [place] Family Medicine [address] [place] [address] ProviderZackery MD [address] [place] [address] Social History Tobacco Use Types [...] Communication Barrier : None Primary Language : Lao Any Spiritual/Cultural Needs or Requests : No [...]
--- OUTSIDE RECORDS SUMMARY | 2025-03-01 12:20 | XMS_ITS | Encounter Summary ---
Author Organization [employer] ([place], [place], [place], [place]) Address [address] [place] [address] Care Team Providers Care Labor Service Representative Name Role Phone Unavailable Primary Care Provider Unavailabl e Encounter Details Date Type Department Care Team (Late st Contact Info) Description 01/17/2021 Transcribed Document [facility] [place] Family Medicine [address] [place] [address] ProviderZackery MD [address] [place] [address] Social History Tobacco Use Types [...] as documented in chart. Surgical history: None ([id number])., Reviewed as documented in chart. Family history: [...] EDT Height Source Stated Height Entry Format Finley Height/Length, MALTESE (ft) 5 ft Height/Length MALTESE 8 Inch CLINICALHEIGHT 172.72 cm Type of Weight Measurement. Finley Weight, est lb 150 lb Estimated Clinical Dosing Weight 68.18 kg [place] Body Weight 67 kg Weight Source Estimated [...] ED Clinical Reconciliation: ED PEDS Triage: ED roofing plant supervisor: Keflex: 500 mg, Oral, 1-Time Prescriptions Prescribed [...] Calls-Consults - Spoke with Dr Kendall ignacio wire rope fabrication supervisor advised pt call ortho office tomrorow morning for followup tomorrow or friday. Plan Condition: Improved, Stable. Disposition: Discharged Admit/Transfer/Discharge: Discharge (Order): Start: 01/17/2021 22:56 EDT, Discharge to: Home. Prescriptions: Prescription Accounting File Clerk Pharmacy: Bactrim DS 800 mg-160 mg oral tablet (Prescribe): 1 Tab, Oral, BID, for 10 Day(s), 20 Tab, 0 Refill(s), Prescription Accounting File Clerk Pharmacy: ibuprofen 800 mg oral tablet (Prescribe): [...]
--- OUTSIDE RECORDS SUMMARY | 2025-03-01 12:20 | XMS_ITS | Encounter Summary ---
Author Organization [employer] ([place], [place], [place], [place]) Address [address] [place] [address] Care Team Providers Care Kaiako Kura Tuarua Name Role Phone Unavailable Primary Care Provider Unavailabl e Encounter Details Date Type Department Care Team (Late st Contact Info) Description 01/18/2021 Transcribed Document [facility] [place] [address] [place] [address] ProviderZackery MD [address] [place] [address] Social History Tobacco Use Types [...]
--- OUTSIDE RECORDS SUMMARY | 2025-03-01 12:20 | XMS_ITS | Encounter Summary ---
Author Organization [employer] ([place], [place], [place], [place]) Address [address] [place] [address] Care Team Providers Care Shrimper Name Role Phone Unavailable Primary Care Provider Unavailabl e Encounter Details Date Type Department Care Team (Late st Contact Info) Description 01/17/2021 Transcribed Document [facility] [place] Family Medicine [address] [place] [address] ProviderZackery MD [address] [place] [address] Social History Tobacco Use Types [...]
--- OUTSIDE RECORDS SUMMARY | 2025-03-01 12:20 | XMS_ITS | Encounter Summary ---
Author Organization [employer] ([place], [place], [place], [place]) Address [address] [place] [address] Care Team Providers Care Extruding Machine Operator Name Role Phone Unavailable Primary Care Provider Unavailabl e Encounter Details Date Type Department Care Team (Late st Contact Info) Description 01/17/2021 Transcribed Document [facility] [place] Family Medicine [address] [place] [address] ProviderZackery MD [address] [place], [place] [id number] Social History Tobacco Use Types Packs/Day Years [...]
--- OUTSIDE RECORDS SUMMARY | 2025-03-01 12:20 | XMS_ITS | Referral Summary ---
Author Organization [employer] ([place], [place], [place], [place]) Address [address] [place] [address] Care Team Providers Care Kingsbury Machine Operator Name Role Phone Unavailable Primary [...]
--- OUTSIDE RECORDS SUMMARY | 2025-03-01 12:20 | XMS_ITS | Encounter Summary ---
Author Organization [employer] ([place], [place], [place], [place]) Address [address] [place] [address] Care Team Providers Care Nuclear Medicine Chief Technologist Name Role Phone Unavailable Primary Care Provider Unavailabl e Encounter Details Date Type Department Care Team (Late st Contact Info) Description 01/17/2021 Transcribed Document [facility] [place] Family Medicine [address] [place] [address] ProviderZackery MD [address] [place] [address] Social History Tobacco Use Types [...] Zackery ProviderMD - 01/17/2021 10:58 PM CDT [facility] [place] [address] VLADIMIR WALL :2005 Visit Time:01/17/2021 [...] other complications Motrin and Tylenol Where: [address] [place] [address] Business (1) Follow Up with [facility] When Within 2 to 3 days Where: [address] [place] [address] [facility] (1) Allergies penicillin Immunizations This Visit No Immunizations Found Medications What How Much When Instructions Next Dose ibuprofen (ibuprofen 800 mg oral tablet) 1 Tablet(s) Oral Every 8 Hours Duration: 10 Day(s) Pickup at [facility] sulfamethoxazole-trimethoprim (Bactrim DS 800 mg-160 mg oral tablet) 1 Tablet(s) Oral Two Times A Day Duration: 10 Day(s) Pickup at [facility] Pharmacy Information [facility]: [facility] [address] [address] [facility] [address] [place], [place] [id number] [phone] The home medications listed are only as [...] and water are not available, use hand bioinformatics developer. ? Change your dressing as told by [...] even if your condition improves. ??? Take trbu-dxy-icuiuwm and prescription medicines only as told by [...] provider. Document Revised: 11/22/2019 Document Reviewed: 02/18/2017 [employer] Patient Education ?? 2020 [employer]. Laceration Care, Adult A laceration is a [...] and water are not available, use hand bioinformatics developer. Keep the wound clean and dry. If [...] off the skin. General instructions ??? Take ejri-dxd-xdbjern and prescription medicines only as told by [...] Reviewed: 08/24/2018 [employer] Patient Education ?? 2020 [employer]. Emergency Awareness and Preventative Care STROKE is [...] Assistance with quitting is available by contacting 8-709-QCRE-NOW. This is a free resource providing counseling, [...] was given the opportunity to ask questions. Patient/Sales Associate Cashier Name: Patient/Sales Associate Cashier Signature: Relationship to Patient: Clinician/Hospital Sales Associate Cashier Signature: Please Provide a Telephone Number Where You Can Be Reached: Is it Permissible To Leave a Message? Date: documented in this encounter Plan of Treatment Not on file documented as of this encounter Visit Diagnoses Not on filedocumented in this encounter
[2025-03-01 12:40] VITALS: BMI 17.2
[2025-03-01 13:00] LABS: Hematocrit 41.4 % (42.0-52.0); Hemoglobin 14.0 g/dL (14.1-18.0); Immature Granulocytes % 0.2 %; Mean Corpuscular HGB Conc 33.8 g/dL (31.8-35.4); Mean Corpuscular Hemoglobin 28.1 pg (27.0-31.2); Mean Corpuscular Volume 83.0 fl (80-94); Nucleated Red Blood Cells % 0 %; Platelet Count 300 K/mm3 (142-424); Red Blood Count 4.99 M/mm3 (4.60-6.20); Red Cell Distribution Width-SD 39.9 fL; White Blood Count 6.5 K/mm3 (4.8-10.8)
[2025-03-01 13:13] LABS: Alanine Aminotransferase 14 U/L (12-78); Albumin Level 4.7 g/dl (3.5-5.0); Albumin/Globulin Ratio 1.6 (1.1-1.8); Alkaline Phosphatase 60 U/L (38-126); Anion Gap 16.9 mEq/L (5-15); Aspartate Amino Transferase 26 U/L (17-59); Bilirubin,Total 0.7 mg/dl (0.2-1.3); Blood Urea Nitrogen 12 mg/dl (9-20); Calcium 9.2 mg/dl (8.4-10.2); Carbon Dioxide 26 mmol/L (22.0-30.0); Chloride 100 mmol/L (98-107); Creatinine Clearance Estimated 150 mL/min (50-200); Creatinine,Serum 0.60 mg/dl (0.66-1.25); Estimated Glomerular Filt Rate 170 ml/min (>60); GFR (African American) 206 ML/MIN (>60); Globulin 2.9 g/dL (1.3-3.2); Glucose 91 mg/dl (74-100); Potassium 3.9 mmoL/L (3.5-5.1); Sodium 139 mmol/L (136-145); Total Protein,Serum 7.6 g/dl (6.3-8.2)
== END 2025-03-01 23:59 | disposition home or self-care (01) ==
LOC: PREOP 12:18
PROVIDERS: Nurse Anesthetist, Certified Registered; Referring Provider Orthopaedic Surgery; Visit Provider Orthopaedic Surgery
DX: Z01.812 Encounter for preprocedural laboratory examination (principal)
CPT/HCPCS: 80053; 85025

== ENCOUNTER 2025-03-02 08:45 | Day surgery (SDC) | payer OTHER, SELFPAY ==
[2025-03-01 12:42] VITALS: BMI 17.2
[2025-03-02] VITALS (11 sets, daily range): BP systolic 114–125; BP diastolic 68–86; PULSE 71–92; RESP 12–20; TEMP 36.2–36.7; O2SAT 97–100
[2025-03-02] MEDS: BUPIVACAINE 0.5% 30ML VIAL 150 MG (10:31)
--- NOTE | 2025-03-02 10:39 | EXP.ANES.CKL ---
[facility] Disclaimer: The information contained in this section may have been updated after the patient was seen, as this information can be updated by other users. Medical History Anxiety Surgical History H/O right wrist surgery Family History Other Family history of cancer Family history of diabetes mellitus type II Family history of myocardial infarction Social History (Updated 03/01/25 @ 12:30 by Romy Gonzalez RN) Smoking Status: Current every day smoker tobacco type: cigarettes years smoked: 2 alcohol intake: never substance use type: denies use current occupational status: employed Travel in the last 8 weeks?: None Have you lived/traveled outside US in past 30 days?: No Contact w/someone who lives/traveled outside US past 30 days?: No Exposure to someone with infectious disease in past 14 days?: No Do you have a fever (greater than 100.4 F or 38 C)?: No Have you tested positive for COVID-19?: No Exposed to someone with COVID-19 in past 14 days?: No Do you have a sore throat?: No Do you have a cough?: No Do you have any weakness?: No Do you have any diarrhea?: No Are you experiencing any unusual bleeding?: No Do you have any muscle aches/pain?: No Do you have any abdominal pain?: No Are you experiencing loss of taste or smell?: No [facility] Anesthesia Checklist Patient Identification Patient Identification: Verbal (Name & ) Structural Data Admitted From: Home Planned Operative Procedure/s: closed red r finger Consent for Planned Operative Procedure(s) Verified: Yes NPO Status Verified Time NPO: 00:00 Additional verifications Anesthesia Reactions: No Hx Blood Transfusions: No Blood Transfusion Reaction: No Airway Assessment Mallampati Score:: Class II C-Spine Mobility Assessed: Yes TMJ Mobility Assessed: Yes Dentition: Poor Dentition Neurological Assessment Level of Consciousness: Awake, Alert and Appropriate Anesthesia Plan Anesthesia Risk discussed: Yes Anesthesia Plan: Verified ASA Class: II Anesthesia Type: General
[2025-03-02] MEDS: CLINDAMYCIN PHOSPHATE/D5W 900 MG/50 ML PIGGYBACK 100 MG (10:45)
--- NOTE | 2025-03-02 10:56 | EXP.OP.NOTE ---
Date of procedure: 03/02/25 Pre-op Diagnosis:: Right fourth metacarpal neck fracture Post-op Diagnosis:: Same Procedure performed:: Close reduction splinting right fourth metacarpal neck fracture Surgeon:: Christian Cavazos DO ARCHEOLOGIST:: Doyle Goncalves Anesthesia: GETA Estimated blood loss (mL): 0 Operative findings:: Under direct x-ray visualization close reduction maneuver was performed there was early callus formation on the volar aspect of the fracture close reduction maneuver established better alignment with reestablishment of the flexion of the knuckle into the palm back to a more neutral position. And then the x-ray was brought in to evaluate the reduction there was callus formation present on the volar aspect the angulation was corrected however on the lateral fluoroscopic view with flexion extension of the finger and rotation and making a fist the fracture site did not move or rotate. Therefore it was unnecessary to perform the percutaneous pinning reviewed multiple views of the hand on x-ray and also live fluoroscopy to confirm the stability of the fracture after closed reduction maneuver was performed. Patient waken anesthesia taken recovery in stable condition. Operative note:: Patient identified preoperatively. Right wrist marked with yes my initials. Transported operative suite placed final operating bed. General anesthesia ministered airway secured. Right upper extremity prepped and draped normal sterile fashion. Once prepped and draped final operative timeout performed to identify proper patient procedure and extremity. Everyone involved in the case agreed. There is no count indication beginning. Did receive preoperative antibiotics. X-ray was brought into identify the fracture site of the fourth metacarpal neck. There is a severely flexed deformity present x-ray was brought in to evaluate a gentle closed reduction maneuver with flexing the MCP joint and dorsal directed pressure was performed there was no significant instability of the fracture and no large popping with the reduction but there was a gradual straightening of the metacarpal there appeared to be callus on the volar aspect of the fracture site which gave its stability. And then once I got acceptable alignment and denominational of the knuckle I went live on fluoroscopy to confirm the reduction and improved alignment and also went live and move the finger at the MCP joint and the wrist to confirm that the fracture was stable. As above. Therefore closed reduction and splinting was indicated and no hardware necessary. A well-padded ulnar gutter based splint was placed with his hand in a functional position patient waken anesthesia and taken recovery in stable condition. Condition: stable Disposition: PACU Complications:: None apparent
--- NOTE | 2025-03-02 11:00 | EXP.ANES.I ---
[facility] Anesthesia Record Part I Anesthesia Record I Intake, IV Amount: 1,000 Hydration: Adequate Estimated blood loss (mL): 0 Urine output (mL): 0 Blood Pressure: 117/70 SaO2: 98 Pulse Rate: 74 Airway Patency: Patent Respiratory Rate: 12 Temperature: 98 F Patient is:: Drowsy and Stable Stable to PACU at:: 10:57
--- NOTE | 2025-03-02 11:04 | XR_ITS ---
FINAL REPORT CLINICAL HISTORY: CLOSED REDUCTION IN OR 0.5 min 0.62 mGy FINDINGS: FLUOROSCOPY LESS THAN 1 HOUR HISTORY: Fluoroscopy guidance. FINDINGS: Fluoroscopic guidance was provided for closed reduction in the OR. Two spot films were obtained. A total of 0.5 minutes of fluoroscopy time were used. DAP: 0.62 mGy IMPRESSION: As above. Reviewed, Interpreted and Dictated by Keven Kent MD Transcribed by Alis Harrell Authenticated and [facility]
--- NOTE | 2025-03-04 11:29 | EXP.ANES.II ---
[facility] Anesthesia Record Part II Anesthesia Record Part II Discharge Time: 12:19 Destination: Surgical Day Care (OP Surgery) PACU nurse assessment reviewed?: Yes Patient Condition:: Good Anesthesia Complications:: None Swallowing reflex intact?: Yes Airway Patency: Patent Cyanosis?: No Blood Pressure: 123/75 SaO2: 100 Respiratory Rate: 16 Pulse Rate: 84 Temperature: 97.1 F Mental Status: Alert & Oriented Pain level:: 0 Nausea and/or vomitting:: None Intake, IV Amount: 0 Hydration: Adequate
[2025-03-04 11:30] VITALS: BP 123/75; PULSE 84; RESP 16; TEMP 36.2; O2SAT 100
== END 2025-03-02 12:19 | disposition home or self-care (01) ==
PROVIDERS: PCP Nurse Practitioner Family; Visit Provider Orthopaedic Surgery
PROC: (CPT 26605; principal; 2025-03-02 10:15)
DX: S62.334A Displaced fracture of neck of fourth metacarpal bone, right hand, initial encounter for closed fracture (principal); S62.141A Displaced fracture of body of hamate [unciform] bone, right wrist, initial encounter for closed fracture; X58.XXXA Exposure to other specified factors, initial encounter; F17.210 Nicotine dependence, cigarettes, uncomplicated; Z88.0 Allergy status to penicillin
CPT/HCPCS: 26605; 73120; 76000; J0665; J0736; J1100; J2003; J2250; J2405; J2704

== ENCOUNTER 2025-03-24 14:09 | Outpatient (CLI) | payer OTHER, SELFPAY ==
--- NOTE | 2025-03-24 14:11 | XR_ITS ---
FINAL REPORT CLINICAL HISTORY: Right Wrist Fx COMPARISON: 02/03/2025 FINDINGS: RIGHT WRIST Three views demonstrate a healing fracture of the distal fourth metacarpal. There is mild volar angulation of the distal fracture fragments. There is extensive callus formation. There is no intra-articular extension. IMPRESSION: Volar angulation and increased callus formation. Reviewed, Interpreted and Dictated by Bentley Terry MD Transcribed by Felecia Leblanc Authenticated and [facility]
--- OUTSIDE RECORDS SUMMARY | 2025-03-24 14:11 | XMS_ITS | Clinical Summary ---
Author Organization [facility] Address [address] [place] [address] Phone Care Team Providers Care Incident Analyst Name Role Phone Unavailable Primary Care Provider Unavailabl e Allergies Active Allergy Reactions Criticality Noted Date Comments Penicillins Rash 08/07/2021 Medications No known medications Social History Tobacco Use Types Packs/Day Years Used Date Smoking Tobacco: Every Day Cigarettes Sex and Gender Information Value Date Recorded Sex Assigned at Not on file Legal Sex Male 11:57 PM EST Gender Identity Not on file Sexual Orientation Not on file Obstetrics History Last Filed Vital Signs Vital Sign Reading Time Taken Comments Blood Pressure 137/94 08/08/2021 12:07 AM EST Pulse 97 08/08/2021 12:07 AM EST Temperature 36.7 C (98 F) 08/08/2021 12:07 AM EST Respiratory Rate 16 08/08/2021 12:07 AM EST Oxygen Saturation 97% 08/08/2021 12:07 AM EST Inhaled Oxygen Concentration - - Weight 54.2 kg (119 lb 6.4 oz) 08/08/2021 12:07 AM EST Height 172.7 cm (5' 8 ) 08/08/2021 12:00 AM EST Body Mass Index 18.15 08/08/2021 12:00 AM EST Plan of Treatment Health Maintenance Due Date Last Done Comments Annual Wellness Exam 12/23/2006 HPV (1 - Male 3-dose series) 12/23/2018 Meningococcal B Vaccine (1 o f 2 - Standard) 2019 DTaP/TDaP/Td (1 - Tdap) 12/23/2022 Hepatitis B Vaccine (1 of 3 - 19+ 3-dose series) 12/23/2022 COVID-19 Vaccine ( - 2023-2 5 season) 2024 Influenza Vaccine (#1) 2025 Pneumococcal Vaccine 0-49 Aged Out No longer eligible based on patient's age to complete this topic Insurance [facility] [address] [facility] [address]
--- OUTSIDE RECORDS SUMMARY | 2025-03-24 14:11 | XMS_ITS | Clinical Summary ---
Author Organization [facility] Address [address] [place] [address] Care Team Providers Care Supervisor Pipe Finishing Name Role Phone Good Romo MD Primary Care Provider [phone] Allergies Active Allergy Reactions Criticality Noted Date [...] Date Last Done Comments [facility]-Depression Screening 2003 [facility]-Infant/Child/Adol SDOH Screenings 2003 [facility]-Varicella Vaccines (1 of 2 - 13+ 2-dose series) 12/23/2016 HPV Vaccines (1 - Male 3-dos e series) 12/23/2018 [facility]- SDOH Screenings 12/23/2021 [facility]-Adult SDOH Screenings 12/23/2021 [facility]-DTaP,Tdap,and Td Vaccine s (1 - Tdap) 12/23/2022 [facility]-Hepatitis B Vaccines (1 of 3 - 19+ 3-dose series) 12/23/2022 [id number] Vaccine (1 - 20 24-25 season) 2024 [facility]-Influenza Vaccine (#1) 2025 [facility]-Zoster Vaccines (1 of 2) 12/23/2053 [...] No Ana Lilia Patel 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 Occupational Therapy No Ana Lilia Patel Insurance [employer] Care Teams Supervisor Pipe Finishing Relationship Specialty Start Date End Date Good Romo MD [address] [place] [address] [address] [place] [address] PCP - General 01/26/21
== END 2025-03-24 23:59 | disposition home or self-care (01) ==
LOC: RAD 14:10
PROVIDERS: PCP Nurse Practitioner Family; Visit Provider Orthopaedic Surgery
DX: S62.304D Unspecified fracture of fourth metacarpal bone, right hand, subsequent encounter for fracture with routine healing (principal); X58.XXXD Exposure to other specified factors, subsequent encounter
CPT/HCPCS: 73110

== ENCOUNTER 2025-04-25 09:07 | Outpatient (CLI) | payer OTHER, SELFPAY ==
--- NOTE | 2025-04-25 09:08 | XR_ITS ---
FINAL REPORT CLINICAL HISTORY: right wrist fx a month ago COMPARISON: 03/24/2025, CT of the right wrist 02/21/2025 FINDINGS: AP, oblique, and lateral views of the right wrist were obtained. There has been interval healing of the fracture of the distal fourth metacarpal since the prior exam. The fracture of the hamate also demonstrates interval healing. There is no acute fracture or dislocation. The joint spaces are preserved. The soft tissues are normal. IMPRESSION: Interval healing of the fracture of the distal fourth metacarpal and the fracture of the hamate since the prior exam. Reviewed, Interpreted and Dictated by Sherlyn Chavira MD Transcribed by Angie Neal Authenticated and [facility]
--- OUTSIDE RECORDS SUMMARY | 2025-04-25 09:22 | XMS_ITS | Clinical Summary ---
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 Occupational Therapy No Ana Lilia Patel Insurance [employer] Care Teams Single Wire Saw Operator Relationship Specialty Start Date End Date Good Romo MD [address] [place] [address] #1 [address]1 [place] [address] PCP - General 01/26/21
--- OUTSIDE RECORDS SUMMARY | 2025-04-25 09:22 | XMS_ITS | Clinical Summary ---
Author Organization [facility] Address [address] [place] [address] Phone Care Team Providers Care Eddy Current Inspector Name Role Phone Unavailable Primary Care [...] COVID-19 Vaccine ( - 2023-2 5 season) 2025 Influenza Vaccine (#1) 2025 Pneumococcal Vaccine 0-49 Aged Out No longer eligible based on patient's age to complete this topic Insurance [facility] [address] [facility] [address]
== END 2025-04-25 23:59 | disposition home or self-care (01) ==
LOC: RAD 09:08
PROVIDERS: PCP Nurse Practitioner Family; Visit Provider Orthopaedic Surgery
DX: S62.394D Other fracture of fourth metacarpal bone, right hand, subsequent encounter for fracture with routine healing; S62.141D Displaced fracture of body of hamate [unciform] bone, right wrist, subsequent encounter for fracture with routine healing
CPT/HCPCS: 73110

== ENCOUNTER 2025-05-25 17:37 | Emergency (ER) | payer OTHER, SELFPAY ==
[2025-05-25 17:46] VITALS: BP 141/93; PULSE 81; RESP 18; TEMP 36.8; O2SAT 100; BMI 18.2
--- NOTE | 2025-05-25 19:10 | PC.NURSE ---
attempted to room patient to a chair room. No answer at this time
== END 2025-05-25 19:14 | disposition left against medical advice (07) ==
PROVIDERS: Emergency Provider Student in an Organized Health Care Education/Training Program; PCP Nurse Practitioner Family
DX: Z53.21 Procedure and treatment not carried out due to patient leaving prior to being seen by health care provider (principal)
CPT/HCPCS: 99211; 99283

== ENCOUNTER 2025-07-10 14:09 | Emergency (ER) | payer MEDICAID, SELFPAY ==
[2025-07-10] VITALS (8 sets, daily range): BP systolic 113–134; BP diastolic 73–108; PULSE 64–93; RESP 16–18; TEMP 36.7–36.9; O2SAT 94–100; BMI 18.2
--- OUTSIDE RECORDS SUMMARY | 2025-07-10 14:18 | XMS_ITS | Clinical Summary ---
Author Organization [facility] Address [address] [place] [address] Phone Care Team Providers Care Automatic Stacker Name Role Phone Unavailable Primary Care Provider [...] 3-dose series) 12/23/2022 COVID-19 Vaccine ( - 2024-2 6 season) 2025 Influenza Vaccine (#1) 2025 Pneumococcal Vaccine 0-49 Aged Out No longer eligible based on patient's age to complete this topic Insurance [facility] [place] [address] [facility] [place] [address]
--- OUTSIDE RECORDS SUMMARY | 2025-07-10 14:18 | XMS_ITS | Clinical Summary ---
Author Organization [facility] Address [address] [id number] Care Team Providers Care Core Piler Name Role Phone Good Romo MD Primary Care Provider [phone] Allergies Active Allergy Reactions Criticality Noted Date [...] Active Problems Problem Noted Date Diagnosed Date Median nerve laceration, right, subsequent encou nter [...] Follow-up with Dr. Clemencia Doyle 1 month Pain in wrist, right 02/01/2021 Stiffness of right wrist joint 01/30/2021 Finger joint stiff, right 01/30/2021 Weakness of right hand 01/30/2021 Pain in finger of right hand 01/17/2021 Resolved Problems Problem Noted Date Diagnosed Date Resolved Date Postoperative scar 02/27/2021 S/P tendon repair 02/05/2021 05/08/2025 Edema of hand 01/30/2021 05/08/2025 Family History Medical History Relation Name Comments [...] of 3 - 19+ 3-dose series) 12/23/2022 [id number] Vaccine (1 - 20 25-26 season) 2025 [facility]-Influenza Vaccine (#1) 2025 [facility]-Zoster Vaccines (1 [...] No Ana Lilia Patel 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 Occupational Therapy No Ana Lilia Patel Insurance [employer] Care Teams Core Piler Relationship Specialty Start Date End Date Good Romo MD [address] [place] [address] #1 #1 [place] [address] PCP - General 01/26/21
--- NOTE | 2025-07-10 14:45 | CT_ITS ---
PROCEDURE INFORMATION: Exam: CTA Neck Without And With Contrast Exam date and time: 07/10/2025 3:14 PM Age: 19 years old Clinical indication: Dizziness and giddiness and visual disturbance and other: Pain in ear, teeth, dizziness, blurred vision TECHNIQUE: Imaging protocol: Computed tomographic angiography of the neck without and with contrast. Exam focused on the cervical segments of the vasculature. 3D rendering (Not supervised by radiologist): MIP and/or 3D reconstructed images were created by the technologist. Radiation optimization: All CT scans at this facility use at least one of these dose optimization techniques: automated exposure control; mA and/or kV adjustment per patient size (includes targeted exams where dose is matched to clinical indication); or iterative reconstruction. Contrast material: ISOVUE; Contrast volume: 75 ml; Contrast route: INTRAVENOUS (IV); COMPARISON: MR CERVICAL SPINE WO CON 06/05/2022 8:24 AM FINDINGS: Right common carotid artery: No stenosis. No dissection or occlusion. Right internal carotid artery: No stenosis of the extracranial segment. No dissection or occlusion. Right external carotid artery: No occlusion or stenosis of the origin. Left common carotid artery: No stenosis. No dissection or occlusion. Left internal carotid artery: No stenosis of the extracranial segment. No dissection or occlusion. Left external carotid artery: No occlusion or stenosis of the origin. Right vertebral artery: No stenosis. No dissection or occlusion. Left vertebral artery: No stenosis. No dissection or occlusion. Soft tissues: Normal. No significant soft tissue swelling. Bones/joints: No acute fracture. IMPRESSION: No stenosis or occlusion. REFERENCES: NASCET CRITERIA. The degree of stenosis in the cervical segment of the internal carotid artery is based on NASCET criteria. Normal is no stenosis. Mild is less than 50% stenosis. Moderate is 50-69% stenosis. Severe is 70% to 99% stenosis. Total occlusion is no detectable patent lumen.
--- NOTE | 2025-07-10 14:45 | CT_ITS ---
PROCEDURE INFORMATION: Exam: CT Head Without Contrast Exam date and time: 07/10/2025 3:13 PM Age: 19 years old Clinical indication: Dizziness and visual disturbance and other: Pain in ear, teeth; Additional info: Pain in ear, teeth, dizziness, blurred vision TECHNIQUE: Imaging protocol: Computed tomography of the head without contrast. Radiation optimization: All CT scans at this facility use at least one of these dose optimization techniques: automated exposure control; mA and/or kV adjustment per patient size (includes targeted exams where dose is matched to clinical indication); or iterative reconstruction. COMPARISON: CT HEAD/BRAIN WO CON 07/10/2025 3:13 PM FINDINGS: Brain: No evidence of acute parenchymal hemorrhage, extra-axial collection or local regional mass effect. Cerebral ventricles: The ventricles, sulci and cisterns are normal in size and configuration. No hydrocephalus or midline structure shift Pituitary gland and sella: Sellar/parasellar structures, orbits and craniocervical junction are unremarkable Paranasal sinuses: Visualized sinuses are unremarkable. No fluid levels. Mastoid air cells: Visualized mastoid air cells are well aerated. Bones: No calvarial fracture Soft tissues: Unremarkable. IMPRESSION: 1. No acute intracranial abnormality. No calvarial fracture. 2. If focal neurological symptoms persist brain MRI can be obtained for better evaluation
--- NOTE | 2025-07-10 14:45 | CT_ITS ---
PROCEDURE INFORMATION: Exam: CTA Head Without And With Contrast, Arteriography Exam date and time: 07/10/2025 3:14 PM Age: 19 years old Clinical indication: Dizziness and giddiness and visual disturbance and other: Pain in ear, teeth; Additional info: Pain in ear, teeth, dizziness, blurred vision TECHNIQUE: Imaging protocol: Computed tomographic angiography of the head without and with contrast. Exam focused on the arteries. 3D rendering (Not supervised by radiologist): MIP and/or 3D reconstructed images were created by the technologist. Radiation optimization: All CT scans at this facility use at least one of these dose optimization techniques: automated exposure control; mA and/or kV adjustment per patient size (includes targeted exams where dose is matched to clinical indication); or iterative reconstruction. Contrast material: ISOVUE; Contrast volume: 75 ml; Contrast route: INTRAVENOUS (IV); COMPARISON: CT HEAD/BRAIN WO CON 07/10/2025 3:13 PM FINDINGS: ANTERIOR CIRCULATION: Right internal carotid artery: Intracranial segment is patent with no significant stenosis or occlusion. No aneurysm. Right middle cerebral artery: No occlusion or significant stenosis. No aneurysm. Right anterior cerebral artery: No occlusion or significant stenosis. No aneurysm. Left internal carotid artery: Intracranial segment is patent with no significant stenosis. No aneurysm. Left middle cerebral artery: No occlusion or significant stenosis. No aneurysm. Left anterior cerebral artery: No occlusion or significant stenosis. No aneurysm. POSTERIOR CIRCULATION: Right vertebral artery: No occlusion or significant stenosis. No aneurysm. Left vertebral artery: No occlusion or significant stenosis. No aneurysm. Basilar artery: No occlusion or significant stenosis. No aneurysm. Right posterior cerebral artery: No occlusion or significant stenosis. No aneurysm. Left posterior cerebral artery: No occlusion or significant stenosis. No aneurysm. HEAD: Brain: Normal. No hemorrhage. Unremarkable white matter. No mass effect. Cerebral ventricles: Normal. No ventriculomegaly. Bones: Unremarkable. No acute fracture. Paranasal sinuses: Visualized sinuses are normal. No fluid levels. Mastoid air cells: Visualized mastoids are normal. No mastoid effusion. Soft tissues: Unremarkable. IMPRESSION: 1. No large vessel occlusion. 2. Unremarkable CT head.
--- NOTE | 2025-07-10 14:49 | ED_ITS ---
<Statement entered by Dominic Gastelum DO - 07/10/25 23:21> I was consulted by the PABLO, and we discussed the complexity of problems being addressed. I approved the treatment and management plan for this patient's care in the emergency department, thus performing a substantive portion of the medical decision making. Dominic Gastelum DO This is Dr. Gastelum. I did independently evaluate this patient as I came on the shift. CT scans were already ordered and performed. CT scans resulted showing no acute abnormalities. The patient on my evaluation was saying that he was having some ear pain, facial pain, dental pain, and a sensation of disequilibrium. On my evaluation the patient had received 1 L of lactated Ringer's and stated that this did make him feel improved. I did perform an otoscopic exam after his cerumen impaction was relieved by the PABLO, and he does have serous effusions behind both ears. I certainly think this could be the cause of his disequilibrium. Additionally, I do note that he has some slight conjunctival injection bilaterally with no discharge. His clinical picture seems most consistent with a viral syndrome. Therefore we obtained viral swabs and treated him with an additional liter of lactated Ringer's. COVID and flu swabs did result negative. Patient likely has a viral syndrome or other etiology. He was discharged home in stable condition Discharge Plan Disposition Patient Disposition: Home, Self-Care Condition: Good Prescriptions Prescriptions: No Action No Known Home Medications sertraline 50 mg tablet 50 mg PO DAILY Qty: 30 0RF Referrals Follow up/Referrals: Ana Zuniga APRN [Primary Care Provider, Medical] - See instructions Activity Restrictions/Add. Instructions Additional Instructions/Restrictions: You were seen for dizziness, ear and dental pain. It is felt that you likely have a viral illness. Please return here if you have any change in mental status, severe pain, neurologic signs such as weakness, or severe pain. Follow-up with your PCP this week. Clinical Impressions Clinical Impression: Dizziness Instructions Patient Instructions: Dizziness, Nonvertigo Print Language Print Language: Stateless Discharge ED Provider: Dominic Gastelum General Adult HPI <LISA Wooten - Last Filed: 07/10/25 17:05> General Chief complaint: PAIN Stated complaint: ear pain, teeth hurting, dizzy Time Seen by Provider: 07/10/25 14:12 Mode of Arrival: Ambulatory Source of Information: Patient Description of Symptoms (Recalled from ER Triage Doc. by RN): pt presents to the ED with bilateral ear pain, left sided teeth pain, and dizziness that started yesterday while he was watching a movie. Denies chest pain and shortness of breath. pt reports 2 days ago at work he felt like he was going to pass out. History of Present Illness HPI narrative: Patient presents complaining of left-sided dental pain, upper and lower, bilateral ear pain and feeling fuzzy. He reports that symptoms started yesterday while watching a movie. He also reports he had headache yesterday. Denies any cough or congestion. Denies any nausea or vomiting. Denies any fever. Denies any drainage from the ear. He reports 2 days ago he did experience some near syncope. He does endorse some blurred vision. MD complaint: ear pain, dental pain, dizziness Onset (ago): day(s) (2) Location: mouth Radiation: non-radiation Relieving factors: none Exacerbating factors: none Associated symptoms: other (denies URI symptoms ); negative nausea/vomiting Treatments prior to arrival: none Related Data Home Medications ?Medication ?Instructions ?Recorded ?Confirmed No Known Home Medications 05/06/2504/18 Previous Rx's ?Medication ?Instructions ?Recorded sertraline 50 mg tablet 50 mg PO DAILY #30 tabs 04/18 05/12 Allergies Allergy/AdvReac Type Severity Reaction Status Date / Time Penicillins (PENICILLINS) Allergy Unknown Unknown Verified 05/06/25 14:10 allergy reaction [facility] <LISA Wooten - Last Filed: 07/10/25 17:05> [facility] Disclaimer: The information contained in this section may have been updated after the patient was seen, as this information can be updated by other users. Medical History (Updated 07/10/25 @ 16:47 by LISA Wooten) Anxiety Surgical History H/O right wrist surgery Family History Other Family history of cancer Family history of diabetes mellitus type II Family history of myocardial infarction Social History Smoking Status: Current every day smoker tobacco type: cigarettes years smoked: 2 alcohol intake: never substance use type: denies use current occupational status: employed Travel in the last 8 weeks?: None Have you lived/traveled outside [place] in past 30 days?: No Contact w/someone who lives/traveled outside [place] past 30 days?: No Exposure to someone with infectious disease in past 14 days?: No Do you have a fever (greater than 100.4 F or 38 C)?: No Have you tested positive for COVID-19?: No Exposed to someone with COVID-19 in past 14 days?: No Do you have a sore throat?: No Do you have a cough?: No Do you have any weakness?: No Do you have any diarrhea?: No Are you experiencing any unusual bleeding?: No Do you have any muscle aches/pain?: No Do you have any abdominal pain?: No Are you experiencing loss of taste or smell?: No Other Medical History Have you received the Pneumonia Vaccine: No <LISA Wooten - Last Filed: 07/10/25 17:05> ROS Obtained: Yes Systems reviewed as appropriate & no additional complaints except as documented Physical Exam <LISA Wooten - Last Filed: 07/10/25 17:05> General General appearance: alert and in no apparent distress Head Head exam: atraumatic and normocephalic Eye Eye exam: Present normal appearance and EOMI ENT ENT exam: Present normal oropharynx, mucous membranes moist, TM's normal bilaterally and other (Copious cerumen left ear canal, removed with irrigation and loop. TM is intact and clear. No dental abscess or tenderness ) Chest Chest inspection: Present symmetric chest wall rise Respiratory Respiratory exam: Present normal lung sounds bilaterally; Absent wheezes or stridor Cardiovascular Cardiovascular exam: Present regular rate and normal rhythm; Absent systolic murmur Extremities Exam Extremities exam: Present full ROM Neurological Exam Neurological exam: Present alert, oriented X3, CN II-XII intact and normal gait; Absent motor sensory deficit Psychiatric Psychiatric exam: Present normal affect and normal mood Skin Skin exam: Present warm, dry and intact Medical Decision Making <LISA Wooten - Last Filed: 07/10/25 17:05> Medical Records Screening: Per USPSTF and CDC recommendations, given the prevalence of disease in our region, it is our hospital?s policy to screen for HIV and viral Hepatitis for all patients aged 18 and over and those with ongoing risk factors. Vital Signs: 07/10/25 14:14 07/10/25 14:14 07/10/25 14:19 Temperature 98.1 F 98.1 F Temperature Source Oral Oral Pulse Rate 69 71 Pulse Rate [Right] 69 Respiratory Rate 18 18 18 Blood Pressure 113/79 113/79 Blood Pressure [Right Arm] 113/79 Blood Pressure Mean 88 Blood Pressure Mean [Right Arm] 90 Blood Pressure Source Automatic Cuff Blood Pressure Source [Right Arm] Automatic Cuff Blood Pressure Position Supine Blood Pressure Position [Right Arm] Supine 02 Sat by Pulse Oximetry 100 100 100 Oxygen Delivery Method Room Air Room Air 07/10/25 14:45 07/10/25 15:00 07/10/25 15:30 Temperature Temperature Source Pulse Rate 78 64 74 Pulse Rate [Right] Respiratory Rate Blood Pressure 113/79 113/79 Blood Pressure [Right Arm] Blood Pressure Mean Blood Pressure Mean [Right Arm] Blood Pressure Source Blood Pressure Source [Right Arm] Blood Pressure Position Blood Pressure Position [Right Arm] 02 Sat by Pulse Oximetry 100 100 94 L Oxygen Delivery Method Room Air 07/10/25 16:01 Temperature Temperature Source Pulse Rate 82 Pulse Rate [Right] Respiratory Rate Blood Pressure 134/108 H Blood Pressure [Right Arm] Blood Pressure Mean Blood Pressure Mean [Right Arm] Blood Pressure Source Blood Pressure Source [Right Arm] Blood Pressure Position Blood Pressure Position [Right Arm] 02 Sat by Pulse Oximetry 94 L Oxygen Delivery Method Room Air Lab Data Lab Results 07/10/25 14:51: WBC 4.0 L, RBC 5.02, Hgb 14.2, Hct 41.9 L, MCV 83.5, MCH 28.3, MCHC 33.9, RDW 12.9, Plt Count 308, MPV 9.4, Neut % (Auto) 40.3, Lymph % (Auto) 43.3, [place] % (Auto) 14.1 H, Eos % (Auto) 1.5, Baso % (Auto) 0.5, Neut # (Auto) 1.6 L, Lymph # (Auto) 1.7, [place] # (Auto) 0.6, Eos # (Auto) 0.1, Baso # (Auto) 0.0, Sodium 134 L, Potassium 3.8, Chloride 101, Carbon Dioxide 27, Anion Gap 9.8, BUN 6 L, Creatinine 0.70, Estimated Creat Clear 129, Estimated GFR 142, Est GFR ( Amer) 172, Glucose 96, Calcium 9.2, Magnesium 2.0, Total Bilirubin 0.6, AST 23, ALT 12, Alkaline Phosphatase 59, Total Protein 7.7, Albumin 4.7, Globulin 3.0, Albumin/Globulin Ratio 1.6, Monoscreen Negative, HIV Ag/Ab Combo Qual Negative 07/10/25 16:09: SARS-CoV-2 (PCR) Not detected, Influenza A Untype (PCR) Not detected, Influenza Type B (PCR) Not detected 07/10/25 14:51 07/10/25 14:51 Orders (Tests/Meds): ED MEDICATIONS Generic Name Dose Route Start Last Admin Trade Name Freq PRN Reason Stop Dose Admin Sodium Chloride 10 ml 07/10/25 14:45 Sodium Chloride 0.9% 10ml Flush Syringe IV 08/09/25 14:44 NEEDED PRN Maintain IV Site Sodium Chloride 10 ml 07/10/25 15:14 07/10/25 15:15 Sodium Chloride 0.9% 10ml Syr (Rad Only) IV 08/09/25 15:13 10 ml NEEDED PRN Administration Maintain IV Site Discontinued Medications Generic Name Dose Route Start Last Admin Trade Name Freq PRN Reason Stop Dose Admin Sodium Chloride 1,000 mls @ 999 mls/hr 07/10/25 14:45 07/10/25 16:07 Sod Chlor 0.9% 1000ml Bag IV 07/10/25 15:45 Infused .Q1H1M ONE Infusion Sodium Chloride 500 mls @ 999 mls/hr 07/10/25 16:30 07/10/25 16:37 Sod Chlor 0.9% 1000ml Bag IV 07/10/25 17:00 999 mls/hr .Q31M ONE Administration Iopamidol 80 ml 07/10/25 15:14 07/10/25 15:15 Iopamidol-370 (76%);100ml Bottle IV 07/10/25 15:15 80 ml ONCE ONE Administration Sodium Chloride 50 ml 07/10/25 15:14 07/10/25 15:15 0.9 % Sodium Chloride 50 Ml Vial IV 07/10/25 15:15 50 ml ONCE ONE Administration ORDERS Category Date Time Status CT angio head Stat Cat Scan 07/10/25 14:[address] angio neck Stat Cat Scan 07/10/25 14:[address] head/brain wo con Stat Cat Scan 07/10/25 14:45 Completed CBC w/Auto Diff [Complete Blood Count Auto Diff] Stat Lab 07/10/25 14:51 Completed CMP [Comprehensive Metabolic Panel] Stat Lab 07/10/25 14:51 Completed HIV Combo Stat Lab 07/10/25 14:51 Completed Hepatitis C Ab Qual. W/ RFX Stat Lab 07/10/25 14:51 Received MAG [Magnesium] Stat Lab 07/10/25 14:51 Completed Monoscreen (Rapid) Stat Lab 07/10/25 14:51 Completed Rapid PCR Covid and Flu A/B Stat Lab 07/10/25 16:09 Completed Medical Decision Narrative: In summary patient is a 19-year-old male who presents the emergency department for evaluation of dizziness, ear and tooth. Patient is hemodynamically upon arrival, afebrile. Unremarkable physical exam. Differential diagnosis includes arrhythmia, electrolyte abnormality, viral illness, CVA. Initial workup will be conducted with EKG, hematologic labs, CT brain, CTA head and neck. Initial inventions include IV fluid. Initial workup reviewed by me unremarkable including negative COVID flu and mono. Upon repeat evaluation patient had acceptable resolution of symptoms with IV fluid. Given this patient is appropriate for discharge at this time, given return precautions and follow-up with PCP. <Omar Batres MD - Last Filed: 07/10/25 14:54> [facility] Inquiry Pt receiving controlled substance: No Vital Signs: 07/10/25 14:14 07/10/25 14:14 07/10/25 14:19 Temperature 98.1 F 98.1 F Temperature Source Oral Oral Pulse Rate 69 71 Pulse Rate [Right] 69 Respiratory Rate 18 18 18 Blood Pressure 113/79 113/79 Blood Pressure [Right Arm] 113/79 Blood Pressure Mean 88 Blood Pressure Mean [Right Arm] 90 Blood Pressure Source Automatic Cuff Blood Pressure Source [Right Arm] Automatic Cuff Blood Pressure Position Supine Blood Pressure Position [Right Arm] Supine 02 Sat by Pulse Oximetry 100 100 100 Oxygen Delivery Method Room Air Room Air 07/10/25 14:45 07/10/25 15:00 07/10/25 15:30 Temperature Temperature Source Pulse Rate 78 64 74 Pulse Rate [Right] Respiratory Rate Blood Pressure 113/79 113/79 Blood Pressure [Right Arm] Blood Pressure Mean Blood Pressure Mean [Right Arm] Blood Pressure Source Blood Pressure Source [Right Arm] Blood Pressure Position Blood Pressure Position [Right Arm] 02 Sat by Pulse Oximetry 100 100 94 L Oxygen Delivery Method Room Air 07/10/25 16:01 Temperature Temperature Source Pulse Rate 82 Pulse Rate [Right] Respiratory Rate Blood Pressure 134/108 H Blood Pressure [Right Arm] Blood Pressure Mean Blood Pressure Mean [Right Arm] Blood Pressure Source Blood Pressure Source [Right Arm] Blood Pressure Position Blood Pressure Position [Right Arm] 02 Sat by Pulse Oximetry 94 L Oxygen Delivery Method Room Air Lab Data Lab Results 07/10/25 14:51: WBC 4.0 L, RBC 5.02, Hgb 14.2, Hct 41.9 L, MCV 83.5, MCH 28.3, MCHC 33.9, RDW 12.9, Plt Count 308, MPV 9.4, Neut % (Auto) 40.3, Lymph % (Auto) 43.3, [place] % (Auto) 14.1 H, Eos % (Auto) 1.5, Baso % (Auto) 0.5, Neut # (Auto) 1.6 L, Lymph # (Auto) 1.7, [place] # (Auto) 0.6, Eos # (Auto) 0.1, Baso # (Auto) 0.0, Sodium 134 L, Potassium 3.8, Chloride 101, Carbon Dioxide 27, Anion Gap 9.8, BUN 6 L, Creatinine 0.70, Estimated Creat Clear 129, Estimated GFR 142, Est GFR ( Amer) 172, Glucose 96, Calcium 9.2, Magnesium 2.0, Total Bilirubin 0.6, AST 23, ALT 12, Alkaline Phosphatase 59, Total Protein 7.7, Albumin 4.7, Globulin 3.0, Albumin/Globulin Ratio 1.6, Monoscreen Negative, HIV Ag/Ab Combo Qual Negative 07/10/25 16:09: SARS-CoV-2 (PCR) Not detected, Influenza A Untype (PCR) Not detected, Influenza Type B (PCR) Not detected Orders (Tests/Meds): ED MEDICATIONS Generic Name Dose Route Start Last Admin Trade Name Freq PRN Reason Stop Dose Admin Sodium Chloride 10 ml 07/10/25 14:45 Sodium Chloride 0.9% 10ml Flush Syringe IV 08/09/25 14:44 NEEDED PRN Maintain IV Site Sodium Chloride 10 ml 07/10/25 15:14 07/10/25 15:15 Sodium Chloride 0.9% 10ml Syr (Rad Only) IV 08/09/25 15:13 10 ml NEEDED PRN Administration Maintain IV Site Discontinued Medications Generic Name Dose Route Start Last Admin Trade Name Freq PRN Reason Stop Dose Admin Sodium Chloride 1,000 mls @ 999 mls/hr 07/10/25 14:45 07/10/25 16:07 Sod Chlor 0.9% 1000ml Bag IV 07/10/25 15:45 Infused .Q1H1M ONE Infusion Sodium Chloride 500 mls @ 999 mls/hr 07/10/25 16:30 07/10/25 16:37 Sod Chlor 0.9% 1000ml Bag IV 07/10/25 17:00 999 mls/hr .Q31M ONE Administration Iopamidol 80 ml 07/10/25 15:14 07/10/25 15:15 Iopamidol-370 (76%);100ml Bottle IV 07/10/25 15:15 80 ml ONCE ONE Administration Sodium Chloride 50 ml 07/10/25 15:14 07/10/25 15:15 0.9 % Sodium Chloride 50 Ml Vial IV 07/10/25 15:15 50 ml ONCE ONE Administration ORDERS Category Date Time Status CT angio head Stat Cat Scan 07/10/25 14:[address] angio neck Stat Cat Scan 07/10/25 14:[address] head/brain wo con Stat Cat Scan 07/10/25 14:45 Completed CBC w/Auto Diff [Complete Blood Count Auto Diff] Stat Lab 07/10/25 14:51 Completed CMP [Comprehensive Metabolic Panel] Stat Lab 07/10/25 14:51 Completed HIV Combo Stat Lab 07/10/25 14:51 Completed Hepatitis C Ab Qual. W/ RFX Stat Lab 07/10/25 14:51 Received MAG [Magnesium] Stat Lab 07/10/25 14:51 Completed Monoscreen (Rapid) Stat Lab 07/10/25 14:51 Completed Rapid PCR Covid and Flu A/B Stat Lab 07/10/25 16:09 Completed Medical Decision Narrative: Omar Batres MD: I was consulted by the PABLO, and we discussed the complexity of the problems being addressed. I approved the treatment and management plan for this patient's care in the emergency department, thus performing a substantive portion of the medical decision making. I agree with initial workup and imaging which was pending at time of transition of care to the oncoming physician, Dr. Gastelum. Procedures <LISA Wooten - Last Filed: 07/10/25 17:05> Ear Wax Removal Left Ear: Results: Re-examined: some cerumen remains TM Examination: TM(s) intact, normal appearance Ear Canal Exam: atraumatic Patient Tolerated Procedure: well Complications: no problems Technique: ear canal irrigated and ear canal curetted Critical Care <Omar Batres MD - Last Filed: 07/10/25 14:54> Critical Care Time Critical Care Time: No
[2025-07-10 14:59] LABS: Hematocrit 41.9 % (42.0-52.0); Hemoglobin 14.2 g/dL (14.1-18.0); Immature Granulocytes % 0.3 %; Mean Corpuscular HGB Conc 33.9 g/dL (31.8-35.4); Mean Corpuscular Hemoglobin 28.3 pg (27.0-31.2); Mean Corpuscular Volume 83.5 fl (80-94); Nucleated Red Blood Cells % 0 %; Platelet Count 308 K/mm3 (142-424); Red Blood Count 5.02 M/mm3 (4.60-6.20); Red Cell Distribution Width-SD 38.9 fL; White Blood Count 4.0 K/mm3 (4.8-10.8)
--- NOTE | 2025-07-10 15:00 | ECG_ITS ---
APPROVED REPORT Exam: Resting ECG HR:63 bpm ECG Measurements Heart Rate 63 AXES [place] 128 P 78 QRSd 80 QRS 87 QT 384 T 73 QTc 391 Conclusion SINUS RHYTHM WITH SINUS ARRHYTHMIA NORMAL ECG Electronically signed by : DINORAH LOOMIS, 07/14/2025 13:55:04
[2025-07-10] MEDS: 0.9 % SODIUM CHLORIDE 1000ML 1,000 ML 999 ML IV (15:05)
[2025-07-10 15:12] LABS: Alanine Aminotransferase 12 U/L (12-78); Albumin Level 4.7 g/dl (3.5-5.0); Anion Gap 9.8 mEq/L (5-15); Aspartate Amino Transferase 23 U/L (17-59); Bilirubin,Total 0.6 mg/dl (0.2-1.3); Blood Urea Nitrogen 6 mg/dl (9-20); Calcium 9.2 mg/dl (8.4-10.2); Carbon Dioxide 27 mmol/L (22.0-30.0); Chloride 101 mmol/L (98-107); Creatinine Clearance Estimated 129 mL/min (50-200); Creatinine,Serum 0.70 mg/dl (0.66-1.25); Estimated Glomerular Filt Rate 142 ml/min (>60); GFR (African American) 172 ML/MIN (>60); Globulin 3.0 g/dL (1.3-3.2); Glucose 96 mg/dl (74-100); Magnesium 2.0 mg/dl (1.6-2.3); Potassium 3.8 mmoL/L (3.5-5.1); Sodium 134 mmol/L (136-145); Total Protein,Serum 7.7 g/dl (6.3-8.2)
[2025-07-10 15:13] LABS: Albumin/Globulin Ratio 1.6 (1.1-1.8); Alkaline Phosphatase 59 U/L (38-126)
[2025-07-10] MEDS: 0.9 % SODIUM CHLORIDE 50 ML VIAL IV (15:15)
[2025-07-10] MEDS: IOPAMIDOL-370 (76%);100ML BOTTLE 80 ML IV (15:15)
[2025-07-10] MEDS: SODIUM CHLORIDE 0.9% 10ML SYR (RAD ONLY) 10 ML IV (15:15)
[2025-07-10 16:13] LABS: Coronavirus 19, PCR Not Detected (NotDetected); Influenza A, PCR Not Detected (NotDetected); Influenza B, PCR Not Detected (NotDetected)
[2025-07-10 16:16] LABS: Monoscreen (Rapid) Negative (Negative)
[2025-07-10] MEDS: 0.9 % SODIUM CHLORIDE 1000ML 500 ML 999 ML IV (16:37)
[2025-07-11 09:48] LABS: Hepatitis C Ab Qual. W/ RFX NEGATIVE (Negative)
== END 2025-07-10 17:20 | disposition home or self-care (01) ==
PROVIDERS: Physician Assistant; Emergency Provider Student in an Organized Health Care Education/Training Program; PCP Nurse Practitioner Family
DX: R42 Dizziness and giddiness (principal); H61.22 Impacted cerumen, left ear; H53.8 Other visual disturbances; H92.03 Otalgia, bilateral; F17.210 Nicotine dependence, cigarettes, uncomplicated
CPT/HCPCS: 70450; 70496; 70498; 80053; 83735; 85025; 86318; 86803; 87389; 87636; 93005; 96360; 99285; J7030; Q9967